=== PATIENT | male | born 1990 | race Two or more races ===

== ENCOUNTER 2020-04-13 11:38 | Outpatient (REF) | payer BC, SELFPAY ==
[2020-04-13 12:54] LABS: Alanine Aminotransferase 25 U/L (0-40); Albumin Level 4.2 g/dL (3.5-5.0); Alkaline Phosphatase 83 U/L (39-117); Anion Gap 11 (12-20); Aspartate Amino Transferase 18 U/L (5-37); Bilirubin Total 0.7 mg/dL (0.0-1.0); Blood Urea Nitrogen 16 mg/dL (9-16); Calcium 9.1 mg/dL (8.4-10.2); Carbon Dioxide 26 mmol/L (22-29); Chloride 104 mmol/L (96-108); Cholesterol 367 mg/dL; Estimated Glomerular Filt Rate > 60; Glucose Fasting 100 mg/dL (60-99); HDL Cholesterol 32 mg/dL; LDL Cholesterol Calculated 299 mg/dl; Potassium 4.4 mmol/l (3.3-5.1); Sodium 137 mmol/L (135-145); Total Protein 7.5 g/dL (6.5-8.0); Triglycerides 182 mg/dL
== END 2020-04-13 11:39 | disposition home or self-care (01) ==
LOC: HO.LAB 11:38
PROVIDERS: PCP Internal Medicine; Visit Provider Internal Medicine
DX: E78.5 Hyperlipidemia, unspecified (principal); R79.89 Other specified abnormal findings of blood chemistry
CPT/HCPCS: 80053; 80061

== ENCOUNTER → 2020-05-11 10:55 | Outpatient (BNVA) | payer BC, SELFPAY | PROVIDERS: PCP Internal Medicine; Visit Provider Surgery ==

== ENCOUNTER 2020-05-19 08:43 | Outpatient (REF) | payer BC, SELFPAY ==
--- NOTE | 2020-05-19 08:23 | MHC.SHP ---
Pre-Procedural Eval Section A The patient is an INPATIENT: No Changes since office visit: No Cold of Flu in the past 2 weeks, No New Medical Problems and No Changes in Medication The History & Physical has been completed within 30 days and I have reviewed it.: Yes Section B Chief Complaint: Pilar cyst Allergies: Allergies Allergy/AdvReac Type Severity Reaction Status Date / Time No Known Allergies Allergy Verified 04/13/20 11:21 Plan Diagnosis/Plan: Unchanged I have reviewed the history and physical and performed a pertinent physical examination on my patient. No changes have occurred unless specified.
[2020-05-19 08:33] VITALS: BP 164/91; PULSE 81; RESP 19; TEMP 36.4; O2SAT 98; BMI 43.0
--- NOTE | 2020-05-19 15:38 | PM.OP ---
Brief Operative Note Date of Service: 05/19/20 Pre-op diagnosis: Pilar cyst posterior scalp Post-op diagnosis: same Procedure: Excision of Pilar cyst posterior scalp Implants: Non Surgeon: Albert Villalobos MD Anesthesia: local Estimated blood loss (mL): 5 Pathology: other (Pilar cyst posterior scalp) Condition: stable Disposition: other (Home)
--- NOTE | 2020-05-20 15:39 | P.OP_ITS ---
Operative Note Operative Note Date of Service: 05/19/20 Narrative: Preoperative diagnosis: Pilar cyst posterior scalp Postoperative diagnosis same Procedure: Excision of Pilar cyst posterior scalp Surgeon: Albert Villalobos MD Anesthesia: Local Indications for procedure: This is a 30-year-old male patient presenting with a large lump in the posterior scalp consistent with a Pilar cyst measuring approximately 8 cm in diameter. Operative findings: Patient was found to have a Pilar cyst which was fluid- filled consistent with a previous hematoma into the cyst. Specimen: Pilar cyst posterior scalp Estimated blood loss: 5 mL Complications: None Procedure details: Patient was brought to the minor surgery suite and placed in a prone position. The site of surgery was confirmed by the patient and informed consent assured. The skin of the posterior scalp was prepped with Betadine and draped in a sterile fashion. Local anesthesia consisting of 1% lidocaine with epinephrine was then infiltrated over the cyst. Incision was then made in elliptical fashion over the cyst oriented longitudinally. Incision was carried down to the cyst wall. A small govea of fluid was noted at this time therefore a needle aspiration was performed and a large fluid collection of a brownish appearing fluid was aspirated. Approximately 9 mL of fluid was aspirated. The cyst wall was then sharply dissected from the surrounding subcutaneous tissue using a combination of scalpel dissection and Metzenbaum dissection. Hemostasis was assured using light pressure. Skin was then closed using interrupted 3 0 Prolene sutures. Sterile dressing was applied as was a pressure dressing. The patient tolerated the procedure well. He was discharged to home in stable condition.
== END 2020-05-19 08:44 | disposition home or self-care (01) ==
LOC: HO.MS 08:43
PROVIDERS: PCP Internal Medicine; Visit Provider Surgery
PROC: (CPT 11426; principal; 2020-05-19 08:50)
DX: L72.11 Pilar cyst (principal)
CPT/HCPCS: 11426; 88304

== ENCOUNTER → 2020-05-27 10:28 | Outpatient (BNVA) | payer BC, SELFPAY | PROVIDERS: PCP Internal Medicine; Visit Provider Surgery ==

== ENCOUNTER 2020-10-09 23:14 | Emergency (ER) | payer BC, SELFPAY ==
[2020-10-09 23:33] VITALS: BP 115/79; PULSE 103; RESP 16; TEMP 37.2; O2SAT 97; BMI 38.9
[2020-10-10] MEDS: Lidocaine 4 % Cream KIT 1 APPL TOPICAL (00:50)
--- NOTE | 2020-10-10 00:56 | ED.GENADULT ---
HPI - General Adult General Chief complaint: Skin/Abscess/Foreign Body Stated complaint: hemorrhoids for 2 weeks Time Seen by Provider: 10/10/20 00:16 Source: patient Mode of arrival: ambulatory Limitations: no limitations History of Present Illness HPI narrative: 30 y/o male with history of morbid obesity, HLD, and hemorrhoids presents to the ER with reports of painful hemorrhoids for the last 1 week. He states he has been using over the counter cream with no relief in his symptoms. He reports pain, burning and itching. He is constipated and has hard stools. He had no abdominal pain, N/V and no rectal bleeding. No rectal intercourse. MD complaint: hemorrhoid pain Onset (ago): week(s) (1) Location: buttocks Radiation: non-radiation Severity: severe and similar to prior episodes Quality: burning, stabbing and constant Pain Consistency: constant Relieving factors: none Exacerbating factors: none Associated symptoms: denies other symptoms Treatments prior to arrival: none Related Data Previous Rx's Medication Instructions Recorded hydrocortisone-pramoxine 1 appl MT QID #10 g 10/10/20 [Proctofoam HC] polyethylene glycol 3350 [Miralax] 17 g PO DAILY #119 g 10/10/20 Allergies Allergy/AdvReac Type Severity Reaction Status Date / Time No Known Allergies Allergy Verified 05/27/20 10:43 Review of Systems Review of Systems: Constitutional: No Fever, No Chills Cardiovascular: No Chest Pain, No SOB Respiratory: No Cough, No Sputum Gastrointestinal: No Nausea, No Vomiting, No Diarrhea, No abdominal Pain, No Hematochezia, No Melena, +constipation Musculoskeletal: No joint pain, No Myalgias Skin: + Skin Lesions, No rash Neuro: No Weakness, No Numbness Heme/Lymph: No Bruising, No Lymphadenopathy PMFSH Past Medical History Attestation statement: The following information was validated with the patient. Medical History Mass of skin of head Morbid obesity Pure hypercholesterolemia Skin lesion Surgical History History of surgery of head Family History Family History Mother No problems noted. Father No problems noted. Social History Social History Alcohol intake: never Advance Directives: No Advance Directives Information Provided: No Physical Exam Vital Signs: Vital Signs: Last Vital Signs Temp 99 F 10/09/20 23:33 Pulse 103 H 10/09/20 23:33 Resp 16 10/09/20 23:33 BP 115/79 10/09/20 23:33 Pulse Ox 97 10/09/20 23:33 Body Mass Index 38.9 Appearance: Alert. Oriented X3. No acute distress. HEENT: normal inspection CVS: Normal heart rate and rhythm. Pulses normal. Respiratory: No respiratory distress. Skin: Skin warm and dry. Normal skin color. Normal skin turgor. No rashes. Rectal: two very small external hemorrhoids at 3 and 9 o'clock, tender. normal rectal tone. no internal hemorrhoids palpable Extremities: atraumatic, no edema Neuro: Oriented X 3. No motor deficit. No sensory deficit. Course Course Course Narrative: 30 y/o male presenting with hemorrhoidal pain. no bleeding. +constipation which is likely precipitating factor. exam does not show any large hemorrhoids that need to be incised at this time. Will continue symptomatic management and start bowel regimen to treat constipation. referral to surgery discussed for ongoing, refractory hemorrhoids. topical lidocaine applied. Patient is stable for discharge home. Discharge Plan Discharge Clinical Impression: Hemorrhoids Qualifiers: Hemorrhoid type: unspecified Qualified Code(s): K64.9 - Unspecified hemorrhoids Patient Disposition: Home, Self-Care Instructions: Hemorrhoids (ED) Additional Instructions: Increase your fluid intake. Take Colace 100 mg two times per day to make your stools soft, found over the counter. Use the prescribed medication for your hemorrhoids. Follow up with general surgery if you symptoms persist. If you have worsening pain or develop significant bleeding come back to the ER for further evaluation. Prescriptions: New Proctofoam HC 1-1 % foam 1 appl MT QID Qty: 10 RF: 0 polyethylene glycol 3350 [Miralax] 17 gram/dose powder 17 g PO DAILY Qty: 119 RF: 0 Referrals: Daniel Little MD [Physician] - 1 week (hemorrhoids) Interventions: ED Discharge Assessment Last Done: 10/10/20 01:09 Discharge Date/Time: 10/10/20 01:10
== END 2020-10-10 01:10 | disposition home or self-care (01) ==
PROVIDERS: Emergency Provider Student in an Organized Health Care Education/Training Program; PCP Internal Medicine
DX: K64.9 Unspecified hemorrhoids (principal); K59.00 Constipation, unspecified; E66.01 Morbid (severe) obesity due to excess calories; Z68.38 Body mass index [BMI] 38.0-38.9, adult
CPT/HCPCS: 99283

== ENCOUNTER 2020-10-22 15:55 | Outpatient (REF) | payer BC, SELFPAY | END 2020-10-22 15:56 | disposition home or self-care (01) | LOC: HO.LNP 15:55 | PROVIDERS: Visit Provider Physician Assistant Medical | DX: Z20.822 Contact with and (suspected) exposure to COVID-19 (principal) | CPT/HCPCS: U0003; U0005 ==

== ENCOUNTER 2020-11-17 05:26 | Emergency (ER) | payer BC, SELFPAY ==
[2020-11-17 06:25] VITALS: BP 145/83; PULSE 88; RESP 16; TEMP 36.4; O2SAT 97; BMI 38.2
[2020-11-17 07:31] VITALS: BP 113/84; PULSE 75; RESP 14; O2SAT 97
--- NOTE | 2020-11-17 07:36 | ED.GENADULT ---
HPI - General Adult General Chief complaint: General Medical Stated complaint: hemorrhoids Time Seen by Provider: 11/17/20 07:35 Source: patient Mode of arrival: ambulatory Limitations: no limitations History of Present Illness HPI narrative: 30-year-old male came in for evaluation of rectal pain. Patient was evaluated in the emergency department 4 weeks ago for similar symptoms, patient is scheduled to see the surgeon next week, came in today for severe rectal pain, no bleeding, no abdominal pain, nausea, no vomiting. Related Data Previous Rx's Medication Instructions Recorded polyethylene glycol 3350 17 17 g PO DAILY #119 g 10/10/20 gram/dose oral powder (Miralax) atorvastatin 20 mg tablet 20 mg PO BEDTIME 90 Days #90 tab 10/20/20 hydrocortisone 2.5 % topical cream 1 appl WA BID-QID PRN 14 Days #30 g 10/20/20 with perineal applicator (Proctosol HC) hydrocortisone acetate 30 mg 30 mg WA BID PRN #12 ea 10/22/20 rectal suppository (Proctocort) ibuprofen 600 mg tablet 600 mg PO Q8H PRN #30 tab 11/17/20 Allergies Allergy/AdvReac Type Severity Reaction Status Date / Time No Known Allergies Allergy Verified 10/22/20 13:16 Review of Systems Review of Systems: All other systems are reviewed and are negative Constitutional: Reports as per HPI and Reports no additional constitutional complaints Eyes: Reports as per HPI and Reports no additional eye complaints Reports system reviewed and no additional complaints, except as documented Cardiovascular: Reports as per HPI and Reports no additional cardiovascular complaints Respiratory: Reports as per HPI and Reports no additional respiratory complaints Gastrointestinal: Reports as per HPI and Reports no additional gastrointestinal complaints Genitourinary: Reports no additional female genitourinary complaints Musculoskeletal: Reports no additional musculoskeletal complaints Skin/Breast: Reports system reviewed and no additional complaints, except as docu Psychiatric: Reports no additional psychiatric complaints Endocrine: Reports no additional endocrine complaints Hematologic/Lymphatic: Reports no additional hematologic/lymphatic complaints Allergic/Immunologic: Reports no additional allergic/immunologic complaints Reports system reviewed and no additional complaints, except as documented and Reports Abnormal speech present [facility] Past Medical History Medical History Hemorrhoids Mass of skin of head Morbid obesity Obese Pure hypercholesterolemia Skin lesion Surgical History History of surgery of head Family History Family History Mother No problems noted. Father No problems noted. Social History Social History Housing: Apartment Alcohol intake: never Patient Tobacco Use Status: Never used Tobacco e-Cigarette/Vaping Use: Never Used Second Hand Smoke Exposure: No Advance Directives: No Advance Directives Information Provided: No service: No Current occupational status: employed Current occupational exposures/hazards: No Physical Exam Vital Signs: Vital Signs: Last Vital Signs Temp 97.5 F 11/17/20 06:25 Pulse 75 11/17/20 07:31 Resp 14 11/17/20 07:31 BP 113/84 11/17/20 07:31 Pulse Ox 97 11/17/20 07:31 Body Mass Index 38.2 Vital signs have been reviewed as appeared to be correct. Blood pressure normal. Heart rate normal. Respiration rate normal. Temperature normal. Oxygen saturation normal. Appearance: Alert. Oriented X3. No acute distress. Head: Normal external exam. Normocephalic. Atraumatic. No Marrero signs noted. No raccoon eyes noted Eyes: PERRLA. EOMI. Conjunctiva and sclera normal. Eyelids normal. ENT: TM's Normal. Pharynx normal. Uvula midline. Moist mucous membranes. No trismus noted. No drooling noted. No muffled voice noted. Neck: Normal inspection. Neck supple. FROM. No adenopathy. Thyroid Normal. No meningeal signs. No neck mass noted. CVS: Normal heart rate and rhythm. Heart sound normal. No murmurs noted. Pulses normal throughout. Respiratory: No respiratory distress. Painless inspiration. Breath sounds normal. No wheezes/rales/rhonchi noted. Chest nontender. No accessory muscle usage noted or decreased air movement noted. Abdomen: Soft and nontender. Bowel sounds normal in all 4 quadrants. No distention noted. No organomegaly noted. No visible injury noted. Rectal exam: 2 x 1 cm external hemorrhoid at 06:00 o'clock of the anal verge, no internal hemorrhoids, no fluctuation or abscess. Back: No CVA tenderness. Full range of motion noted. Skin: Skin warm and dry. Normal skin color. Normal skin turgor. No rashes/lesions/lacerations noted. Extremities: No lower extremity edema. Extremities exhibit normal range of motion. Extremities nontender. Neuro: Oriented X 3. No motor deficit. No sensory deficit. Reflexes normal. Course Course Course Narrative: Assessment and plan. Uncomplicated hemorrhoid patient is awaiting to see the surgeon, will give 1 time oxycodone, patient was instructed to drink plenty of fluids and try to avoid constipation. Discharge Plan Discharge Clinical Impression: Hemorrhoids Qualifiers: Hemorrhoid type: unspecified Qualified Code(s): K64.9 - Unspecified hemorrhoids Patient Disposition: Home, Self-Care Instructions: Hemorrhoids (ED) Prescriptions: New ibuprofen 600 mg tablet 600 mg PO Q8H PRN (Reason: pain) Qty: 30 RF: 0 No Action polyethylene glycol 3350 [Miralax] 17 gram/dose powder 17 g PO DAILY Qty: 119 RF: 0 hydrocortisone [Proctosol HC] 2.5 % cream with perineal applicator 1 appl WA BID-QID PRN (Reason: hemorrhoids) 14 Days Qty: 30 RF: 1 atorvastatin 20 mg tablet 20 mg PO BEDTIME 90 Days Qty: 90 RF: 1 hydrocortisone acetate [Proctocort] 30 mg suppository 30 mg WA BID PRN (Reason: hemorrhoids) Qty: 12 RF: 0 Referrals: Daniel Little MD [Physician] - 2 days
[2020-11-17] MEDS: oxyCODONE HCl Immed Release 5 MG TABLET PO (08:12)
== END 2020-11-17 08:16 | disposition home or self-care (01) ==
PROVIDERS: Emergency Provider Emergency Medicine; PCP Internal Medicine
DX: K64.9 Unspecified hemorrhoids (principal); Z79.899 Other long term (current) drug therapy
CPT/HCPCS: 99283; 99284

== ENCOUNTER 2020-12-10 14:14 | Emergency (ER) | payer BC, SELFPAY ==
[2020-12-10 14:39] VITALS: BP 134/85; PULSE 70; RESP 16; TEMP 36.4; O2SAT 98; BMI 38.6
--- NOTE | 2020-12-10 16:15 | ED.GENADULT ---
HPI - General Adult General Chief complaint: General Medical Stated complaint: hemorrhoids bleeding, back and legs pain Source: patient Mode of arrival: ambulatory Limitations: no limitations History of Present Illness HPI narrative: 30-year-old male presents with rectal pain and bleeding from hemorrhoids. Has a past medical history of hemorrhoids and it has seen Dr. Little for surgical consult. Has a repeat visit with Dr. Little on the . Onset (ago): day(s) Radiation: non-radiation Severity: moderate Severity scale (1-10): 6 Pain Consistency: constant Associated symptoms: denies other symptoms Related Data Previous Rx's Medication Instructions Recorded polyethylene glycol 3350 17 17 g PO DAILY #119 g 10/10/20 gram/dose oral powder (Miralax) atorvastatin 20 mg tablet 20 mg PO BEDTIME 90 Days #90 tab 10/20/20 hydrocortisone 2.5 % topical cream 1 appl MD BID-QID PRN 14 Days #30 g 10/20/20 with perineal applicator (Proctosol HC) hydrocortisone acetate 30 mg 30 mg MD BID PRN #12 ea 10/22/20 rectal suppository (Proctocort) ibuprofen 600 mg tablet 600 mg PO Q8H PRN #30 tab 11/17/20 ibuprofen 600 mg tablet 600 mg PO TID PRN #20 tab 11/17/20 ibuprofen 600 mg tablet 600 mg PO TID PRN #30 tab 12/10/20 Allergies Allergy/AdvReac Type Severity Reaction Status Date / Time No Known Allergies Allergy Verified 11/17/20 10:47 Review of Systems Review of Systems: Constitutional: No Fever, No Chills ENT/Mouth: No Ear Pain, No Hoarseness, No sore throat Eyes: No Eye Pain, No Swelling, No Redness, No Foreign Body Cardiovascular: No Chest Pain, No SOB Respiratory: No Cough, No Dyspnea Gastrointestinal: Positive rectal bleedings, positive hemorrhoids, No Nausea, No Vomiting, No Diarrhea, No abdominal Pain Genitourinary: No Dysuria, No Hematuria Musculoskeletal: positive lower back pain, No Myalgias, No Joint Swelling Skin: No Skin lacerations, No rash Neuro: No Weakness, No Numbness, No Paresthesias, No Loss of Consciousness, No Dizziness, No Headache Psych: No Anxiety/Panic, No Depression Heme/Lymph: no easy bruising, no Lymphadenopathy Endocrine: No Polyuria, No Polydipsia Yes all other systems are reviewed and are negative [facility]LY [facility] Past Medical History Attestation statement: The following information was validated with the patient. Source: old records reviewed Medical History External thrombosed hemorrhoids Hemorrhoids Mass of skin of head Morbid obesity Obese Pure hypercholesterolemia Skin lesion Surgical History History of surgery of head Family History Family History Mother No problems noted. Father No problems noted. Social History Social History Housing: Apartment Alcohol intake: never Patient Tobacco Use Status: Never used Tobacco e-Cigarette/Vaping Use: Never Used Second Hand Smoke Exposure: No Use of substances other than those prescribed or required for medical reasons: No Advance Directives: No Advance Directives Information Provided: No service: No Current occupational status: employed Current occupational exposures/hazards: No Physical Exam Vital Signs: Vital Signs: Last Vital Signs Temp 97.6 F 12/10/20 14:39 Pulse 70 12/10/20 14:39 Resp 16 12/10/20 14:39 BP 134/85 12/10/20 14:39 Pulse Ox 98 12/10/20 14:39 Body Mass Index 38.6 Appearance: Alert. Oriented X3. No acute distress. Eyes: Pupils equal, round and reactive to light. ENT: Pharynx normal. Neck: Normal inspection. Neck supple. CVS: Normal heart rate and rhythm. Pulses normal. Respiratory: No respiratory distress. Breath sounds normal. Abdomen: Soft and nontender. Genitourinary: Thrombosed external hemorrhoid noted, normal rectal tone. Skin: Skin warm and dry. Normal skin color. Normal skin turgor. Extremities: No lower extremity edema. Neuro: No motor deficit. No sensory deficit. Course Course Course Narrative: Patient presents with rectal pain and bleeding from known hemorrhoids. States the pain is 10/10, and now radiates to his back. He does have an appointment with Dr. Little on the . Physical exam indicates thrombosed external hemorrhoids, with normal rectal tone. Will give dibucaine and hydrocortisone topical ointment. Patient was encouraged to keep the appointment with Dr. Little. H&H is within normal limits. Patient verbalized understanding of and agrees to plan of care discharge home. Medical Decision Making Differential Diagnosis Differential Diagnosis: Hemorrhoids Medical Records Medical records reviewed: Yes I reviewed the patient's medical records. Lab Data Lab results reviewed: Yes I reviewed the patient's lab results. Result diagrams: 12/10/20 16:42 12/10/20 16:42 Labs: Lab Results 12/10/20 12/10/20 Range/Units 16:42 16:42 WBC 8.5 (4.8-10.8) X10*3/uL RBC 5.31 (4.60-5.80) X10*6/uL Hgb 13.7 L (14.0-18.0) g/dl Hct 42.1 (42-52) % MCV 79.3 L (80-98) fL MCH 25.8 L (27.0-33.0) pg MCHC 32.5 (31.0-36.0) g/dl RDW 15.7 (11.0-16.0) % Plt Count 201 (160-400) X10*3/uL MPV 12.5 H (9.4-12.4) fL Immature Gran % (Auto) 0.2 (0.0-0.4) % Neut % (Auto) 71.1 (45-73) % Lymph % (Auto) 23.0 (20-40) % Valley % (Auto) 4.0 (2-11) % Eos % (Auto) 1.2 (0-4) % Baso % (Auto) 0.5 (0-2) % Lymph # (Auto) 2.0 (1.2-4.9) X10*3/uL Valley # (Auto) 0.3 (0.1-1.2) X10*3/uL Eos # (Auto) 0.1 (0.0-0.4) X10*3/uL Baso # (Auto) 0.0 (0.0-0.2) X10*3/uL Abs Immat Gran (auto) 0.02 (0.00-0.03) X10*3/uL Absolute Neuts (auto) 6.1 (2.0-8.3) X10*3/uL Absolute Nucleated RBC 0.000 (0.0-0.012) X10*3/uL Nucleated RBC % (auto) 0.0 (0.0-0.2) /100WBC Sodium 140 (135-145) mmol/L Potassium 4.1 (3.3-5.1) mmol/L Chloride 107 (96-108) mmol/L Carbon Dioxide 24 (22-29) mmol/L Anion Gap 13 (12-20) BUN 14 (9-16) mg/dL Creatinine 1.03 (0.5-1.4) mg/dL Estim Creat Clear Calc 147.0 Estimated GFR > 60 Random Glucose 109 (60-115) mg/dL Calcium 9.5 (8.4-10.2) mg/dL Discharge Plan Discharge Clinical Impression: External thrombosed hemorrhoids, Hemorrhoids Patient Disposition: Home, Self-Care Instructions: Hemorrhoids (ED), Rectal Bleeding (ED), Thrombosed Hemorrhoid (ED) Additional Instructions: Please continue to follow-up with Dr. Little. Keep your appointment on the . Use the hydrocortisone cream twice a day. Use Dibucaine ointment 4 times a day. Use MiraLax and Colace to help soften stools. Thank you for choosing this emergency department for evaluation. Please follow-up with primary care physician as needed. Return to the emergency department for any new, concerning, or worsening symptoms. Prescriptions: New ibuprofen 600 mg tablet 600 mg PO TID PRN (Reason: pain) Qty: 30 RF: 0 No Action polyethylene glycol 3350 [Miralax] 17 gram/dose powder 17 g PO DAILY Qty: 119 RF: 0 ibuprofen 600 mg tablet 600 mg PO Q8H PRN (Reason: pain) Qty: 30 RF: 0 hydrocortisone [Proctosol HC] 2.5 % cream with perineal applicator 1 appl MD BID-QID PRN (Reason: hemorrhoids) 14 Days Qty: 30 RF: 1 atorvastatin 20 mg tablet 20 mg PO BEDTIME 90 Days Qty: 90 RF: 1 hydrocortisone acetate [Proctocort] 30 mg suppository 30 mg MD BID PRN (Reason: hemorrhoids) Qty: 12 RF: 0 ibuprofen 600 mg tablet 600 mg PO TID PRN (Reason: pain) Qty: 20 RF: 0 Referrals: Daniel Little MD [Physician] - 2 days (Hemorrhoids) Interventions: ED Discharge Assessment Last Done: 12/10/20 17:14
[2020-12-10 16:46] LABS: MANUAL DIFF FLAG NO
[2020-12-10 16:48] LABS: Basophils Percent Auto 0.5 % (0-2); Eosinophils Absolute Auto 0.1 X10*3/uL (0.0-0.4); Eosinophils Percent Auto 1.2 % (0-4); Hematocrit 42.1 % (42-52); Hemoglobin 13.7 g/dl (14.0-18.0); Imm Gran Abs Auto 0.02 X10*3/uL (0.00-0.03); Imm Gran Pct Auto 0.2 % (0.0-0.4); Mean Corpuscular HGB Conc 32.5 g/dl (31.0-36.0); Mean Corpuscular Hemoglobin 25.8 pg (27.0-33.0); Mean Corpuscular Volume 79.3 fL (80-98); Mean Platelet Volume 12.5 fL (9.4-12.4); Monocytes Absolute Auto 0.3 X10*3/uL (0.1-1.2); Neutrophils Absolute Auto 6.1 X10*3/uL (2.0-8.3); Neutrophils Percent Auto 71.1 % (45-73); Platelet Count 201 X10*3/uL (160-400); Red Blood Count 5.31 X10*6/uL (4.60-5.80); Red Cell Distribution Width 15.7 % (11.0-16.0); White Blood Count 8.5 X10*3/uL (4.8-10.8)
[2020-12-10] MEDS: Hydrocortisone 2.5 % Rectal Cr 30 GM TUBE 1 APPL PR (17:09)
[2020-12-10 17:18] LABS: Anion Gap 13 (12-20); Blood Urea Nitrogen 14 mg/dL (9-16); Calcium 9.5 mg/dL (8.4-10.2); Carbon Dioxide 24 mmol/L (22-29); Chloride 107 mmol/L (96-108); Estimated Glomerular Filt Rate > 60; Glucose Random 109 mg/dL (60-115); Potassium 4.1 mmol/L (3.3-5.1); Sodium 140 mmol/L (135-145)
== END 2020-12-10 17:27 | disposition home or self-care (01) ==
PROVIDERS: Nurse Practitioner Family; Emergency Provider Internal Medicine; PCP Internal Medicine
DX: K64.5 Perianal venous thrombosis (principal); E66.9 Obesity, unspecified; E78.00 Pure hypercholesterolemia, unspecified; Z79.02 Long term (current) use of antithrombotics/antiplatelets; Z79.899 Other long term (current) drug therapy
CPT/HCPCS: 36415; 80048; 85025; 99283; 99284

== ENCOUNTER → 2020-12-14 14:37 | Outpatient (BNVA) | payer BC, SELFPAY | PROVIDERS: PCP Internal Medicine; Visit Provider Surgery ==

== ENCOUNTER 2020-12-23 10:12 | Day surgery (SDC) | payer BC, SELFPAY ==
--- NOTE | 2020-12-22 09:28 | HO.ANESPROP2 ---
Documented by User: Ailyn Mahoney NP 12/22/20 09:29 HPI - Anesthesia Eval Consult details Narrative: 30yo M for EUA, Hemorrhoidectomy PMFSH Active Problems Active Problems: All Active Problems (Updated 12/14/20 @ 15:10 by Daniel Little MD) Anal fissure (Acute) External thrombosed hemorrhoids (Acute) Obese (Acute) Hemorrhoids (Acute) Pilar cyst (Acute) Mass of skin of head (Acute) Pure hypercholesterolemia (Acute) Skin lesion (Acute) Morbid obesity (Acute) Past Medical History Medical History Anal fissure External thrombosed hemorrhoids Hemorrhoids Mass of skin of head Morbid obesity Obese Pure hypercholesterolemia Skin lesion Family History Family History Mother No problems noted. Father No problems noted. Surgical History Surgical History History of surgery of head Social History Social History Housing: Apartment Alcohol intake: never Patient Tobacco Use Status: Never used Tobacco e-Cigarette/Vaping Use: Never Used Second Hand Smoke Exposure: No Use of substances other than those prescribed or required for medical reasons: No Are you DNR?: No Advance Directives: No Advance Directives Information Provided: Yes service: No Current occupational status: employed Current occupational exposures/hazards: No Meds Allergies Allergy/AdvReac Type Severity Reaction Status Date / Time No Known Allergies Allergy Verified 11/17/20 10:47 Exam Exam Date and Time: December 22, [id number] Pertinent Lab Results Pertinent Lab Results: Laboratory Tests 12/10/20 12/10/20 16:42 16:42 WBC 8.5 Hgb 13.7 L Hct 42.1 Plt Count 201 Sodium 140 Potassium 4.1 Chloride 107 Carbon Dioxide 24 BUN 14 Creatinine 1.03 Assessment and Plan Assessment Anesthesia Assessment: Chart Reviewed Documented by User: Jo Ann Wolf MD 12/23/20 11:41 PMFSH Past Medical History Medical History Anal fissure External thrombosed hemorrhoids Hemorrhoids Mass of skin of head Morbid obesity Obese Pure hypercholesterolemia Skin lesion Functional capacity: independent ambulation Family History Family History Mother No problems noted. Father No problems noted. Family history of problems with anesthesia: No Surgical History Surgical History History of surgery of head History of Problems with Anesthesia: No Social History Social History Housing: Apartment Alcohol intake: never Patient Tobacco Use Status: Never used Tobacco e-Cigarette/Vaping Use: Never Used Second Hand Smoke Exposure: No Use of substances other than those prescribed or required for medical reasons: No Are you DNR?: No Advance Directives: No Advance Directives Information Provided: Yes service: No Current occupational status: employed Current occupational exposures/hazards: No Meds Allergies Allergy/AdvReac Type Severity Reaction Status Date / Time No Known Allergies Allergy Verified 11/17/20 10:47 Exam Airway Mallampati Class: III TM Dist: >3cm Neck ROM: Full Heart: RRR Lungs: CTA Assessment and Plan Final Anesthetic Review Family History of Problems with Anesthesia: No History of Problems with Anesthesia: No
[2020-12-23] VITALS (12 sets, daily range): BP systolic 92–139; BP diastolic 47–81; PULSE 62–108; RESP 14–20; TEMP 36.1–36.4; O2SAT 93–100; BMI 35.6
[2020-12-23] MEDS: Lactated Ringers 1,000 ML 100 ML IVCONT (10:50)
--- NOTE | 2020-12-23 12:12 | MHC.SHP ---
Pre-Procedural Eval Section A Date of Service: 12/23/20 Section B Chief Complaint: Anal Fissure Allergies: Allergies Allergy/AdvReac Type Severity Reaction Status Date / Time No Known Allergies Allergy Verified 11/17/20 10:47 Plan I have reviewed the history and physical and performed a pertinent physical examination on my patient. No changes have occurred unless specified.
--- NOTE | 2020-12-23 13:02 | P.OP_ITS ---
Operative Note Operative Note Date of Service: 12/23/20 Narrative: Preop diagnosis: Anal fissure Postop diagnosis: Anal fissure Procedure: Exam under anesthesia, left lateral internal sphincterotomy Surgeon: Daniel Little MD [employer]: Jane Arora. The patient is a 30-year-old male who was seen in the office because of severe anal pain with bowel movements. Overall exam and clinical findings were suggestive of an anal fissure. He wanted to proceed with lateral internal sphincterotomy for relief of his symptoms. He understood the risks including but not limited to bleeding infections, as well as benefits and alternatives. He was brought to the operating room. He was placed in prone katlyn-knife position under general anesthesia via endotracheal tube. The buttocks were retracted with wide tape laterally. The perianal area area was prepped and draped in usual sterile fashion. A surgical time-out was done. The patient received Cefotan 2 g IV preoperatively. Examination of the anal orifice revealed external hemorrhoids, moderate sized to bulky, on the left and right side. There was no thrombosed hemorrhoid or any inflammation. I infiltrated the perianal area with lidocaine 1%. I inserted Cal Gonzáles retractor and examined the anal canal circumferentially. There was note of a posterior midline fissure at the anal derm with note of visible sphincter. The rest of the examination of the anal canal did not reveal any other pathology except for hemorrhoids on both the left and right side, mix of internal external I palpated for the intersphincteric groove on the left side of the anal verge. I made an incision on the skin overlying the intersphincteric groove using a blade 15. I then used a fine tip hemostat to gently dissect through the skin all the way into the sphincter fibers. I was able to directly visualize the intersphincteric plane. I isolated the internal sphincter fibers. I divided the fibers of the internal sphincter using electrocautery all the way down to the level of the dentate line. He did have significant hemorrhoidal tissue so I had to carefully stay way from this during the dissection After sphincterotomy, proceeded to then close the small incision with a running chromic 3-0 stitch I then re-examined the posterior midline. I cauterized the edges of the posterior midline fissure. I also cauterized the base of the wound. Once hemostasis was confirmed, I proceeded to then infiltrated the perianal area with Marcaine 0.5% for postop analgesia. The procedure was then completed The patient tolerated procedure well. There were no complication noted. Initial fine counts of sponges and instruments were correct. Estimated blood loss about 4 cc The patient was then extubated without difficulty and transferred to the recovery room with stable vital signs.
--- NOTE | 2020-12-23 13:08 | PM.OP ---
Brief Operative Note Date of Service: 12/23/20 Pre-op diagnosis: Anal fissure Post-op diagnosis: same Procedure: Exam under anesthesia, lateral internal sphincterotomy Surgeon: Daniel Little MD Anesthesia: GETA Was an Dirt Shoveler used for this Procedure?: No Estimated blood loss (mL): 4 Pathology: none sent Condition: stable Disposition: PACU
[2020-12-23] MEDS: oxyCODONE HCl Immed Release 5 MG TABLET PO (13:27)
[2020-12-23] MEDS: fentaNYL citrate/PF 100 MCG/2 ML VIAL 25 MCG IVPUSH ×2 (13:29→13:55)
--- NOTE | 2020-12-23 15:30 | PC.NURSE ---
patient remains nauseous Dr. Buchanan notified. HR 56 RR 17 sao2 97% ra.
[2020-12-23] MEDS: Ondansetron ODT 4 MG TAB.RAPDIS TRANSLINGU (15:38)
== END 2020-12-23 15:55 ==
LOC: HO.SSS 10:13
PROVIDERS: PCP Internal Medicine; Visit Provider Surgery
PROC: (CPT 46200; principal; 2020-12-23 11:40)
DX: K60.2 Anal fissure, unspecified (principal); K64.4 Residual hemorrhoidal skin tags; E78.00 Pure hypercholesterolemia, unspecified; E66.01 Morbid (severe) obesity due to excess calories; Z68.37 Body mass index [BMI] 37.0-37.9, adult; Z79.1 Long term (current) use of non-steroidal anti-inflammatories (NSAID); Z79.899 Other long term (current) drug therapy
CPT/HCPCS: 46200; J1100; J2405; J3010

== ENCOUNTER → 2021-01-05 15:23 | Outpatient (BNVA) | payer BC, SELFPAY | PROVIDERS: PCP Internal Medicine; Visit Provider Surgery ==

== ENCOUNTER → 2021-01-19 11:46 | Outpatient (BNVA) | payer BC, SELFPAY | PROVIDERS: PCP Internal Medicine; Visit Provider Surgery ==

== ENCOUNTER 2021-05-10 13:38 | Outpatient (REF) | payer BC, SELFPAY ==
[2021-05-10 14:48] LABS: Alanine Aminotransferase 24 U/L (0-40); Albumin Level 4.2 g/dL (3.5-5.0); Alkaline Phosphatase 95 U/L (39-117); Anion Gap 12 (12-20); Aspartate Amino Transferase 24 U/L (5-37); Bilirubin Total 0.2 mg/dL (0.0-1.0); Blood Urea Nitrogen 17 mg/dL (9-16); Calcium 9.7 mg/dL (8.4-10.2); Carbon Dioxide 23 mmol/L (22-29); Chloride 107 mmol/L (96-108); Cholesterol 368 mg/dL; Estimated Glomerular Filt Rate > 60; Glucose Fasting 109 mg/dL (60-99); HDL Cholesterol 30 mg/dL; LDL Cholesterol Calculated 288 mg/dl; Sodium 138 mmol/L (135-145); Total Protein 7.7 g/dL (6.5-8.0); Triglycerides 250 mg/dL
[2021-05-10 15:29] LABS: Syphilis Screen Nonreactive (Nonreactive)
[2021-05-11 05:05] LABS: HIV AB/AG Nonreactive (Nonreactive); HIV Num 1 0.05 S/CO (0.00-0.99)
== END 2021-05-10 13:39 | disposition home or self-care (01) ==
LOC: HO.LAB 13:38
PROVIDERS: PCP Internal Medicine; Visit Provider Internal Medicine
DX: Z11.4 Encounter for screening for human immunodeficiency virus [HIV] (principal); E78.00 Pure hypercholesterolemia, unspecified; E78.5 Hyperlipidemia, unspecified
CPT/HCPCS: 36415; 80053; 80061; 86780; 87389

== ENCOUNTER 2022-03-23 05:15 | Emergency (ER) | payer BC, SELFPAY ==
--- NOTE | ~2022-03-23 | US_ITS ---
EXAMINATION: US ABDOMEN LIMITED CLINICAL INFORMATION: Right upper quadrant pain. COMPARISON: CT scan of the abdomen and pelvis dated 06/15/2011. TECHNIQUE: Real-time imaging of the right upper quadrant abdominal viscera. FINDINGS: PANCREAS: Visualized portions unremarkable. LIVER: Unremarkable. GALLBLADDER: Minimally distended containing multiple gallstones without significant mural thickening or pericholecystic fluid. COMMON BILE DUCT: Normal in caliber measuring 0.3 cm in diameter. RIGHT KIDNEY: 11.6 cm. Unremarkable. FREE FLUID: None. US/US abdomen limited IMPRESSION: Cholelithiasis without evidence for acute cholecystitis.
[2022-03-23 05:25] VITALS: BP 130/78; PULSE 85; RESP 20; TEMP 36.4; O2SAT 99; BMI 35.2
[2022-03-23 05:36] LABS: MANUAL DIFF FLAG NO
[2022-03-23 05:37] LABS: Basophils Percent Auto 0.3 % (0-2); Eosinophils Absolute Auto 0.1 X10*3/uL (0.0-0.4); Eosinophils Percent Auto 1.3 % (0-4); Hematocrit 44.4 % (42.0-52.0); Hemoglobin 14.7 g/dl (14.0-18.0); Imm Gran Abs Auto 0.02 X10*3/uL (0.00-0.03); Imm Gran Pct Auto 0.2 % (0.0-0.4); Lymphocytes Absolute Auto 2.5 X10*3/uL (1.2-4.9); Lymphocytes Percent Auto 27.4 % (20-40); Mean Corpuscular HGB Conc 33.1 g/dl (31.0-36.0); Mean Corpuscular Hemoglobin 26.5 pg (27.0-33.0); Mean Platelet Volume 11.9 fL (9.4-12.4); Monocytes Absolute Auto 0.8 X10*3/uL (0.1-1.2); Monocytes Percent Auto 8.5 % (2-11); Neutrophils Absolute Auto 5.6 x10*3/uL (2.0-8.3); Neutrophils Percent Auto 62.3 % (45-73); Platelet Count 196 X10*3/uL (160-400); Red Blood Count 5.55 X10*6/uL (4.60-5.80); Red Cell Distribution Width 15.5 % (11.0-16.0)
[2022-03-23 05:54] LABS: Anion Gap 13 (12-20); Blood Urea Nitrogen 15 mg/dL (9-16); Calcium 9.5 mg/dL (8.4-10.2); Carbon Dioxide 25 mmol/L (22-29); Chloride 100 mmol/L (96-108); Creatinine Clr Calc Pharmacy 149.1; Estimated Glomerular Filt Rate > 60; Glucose Random 96 mg/dL (60-115); Potassium 3.6 mmol/L (3.3-5.1); Sodium 134 mmol/L (135-145)
[2022-03-23 07:05] VITALS: BP 120/76; PULSE 64; RESP 16; O2SAT 98
[2022-03-23 07:06] LABS: Alanine Aminotransferase 155 U/L (0-40); Albumin Level 4.3 g/dL (3.5-5.0); Alkaline Phosphatase 102 U/L (39-117); Aspartate Amino Transferase 203 U/L (5-37); Bilirubin Direct 0.4 mg/dL (0.0-0.5); Bilirubin Total 0.9 mg/dL (0.0-1.0); Lipase 32 U/L (8-78); Total Protein 7.4 g/dL (6.5-8.0)
--- NOTE | 2022-03-23 07:08 | ED_ITS ---
HPI - Abdominal Pain General Chief Complaint: Abdominal Pain Stated Complaint: Abd pain Time Seen by Provider: 03/23/22 06:36 Source: patient Mode of arrival: ambulatory History of Present Illness HPI narrative: 31-year-old male without significant past medical history presents with right upper quadrant/epigastric abdominal discomfort that is crampy in nature and extends over the diaphragmatic distribution in into posterior back on the right side. This is not been associated with any fever, chills, nausea, vomiting but patient states he had a similar ?attack? last month that resolved on its own. He otherwise denies any GI or symptoms. Related Data Previous Rx's Medication Instructions Recorded atorvastatin 40 mg tablet 40 mg PO BEDTIME 90 days #90 tabs 09/19/21 loratadine 10 mg tablet 10 mg PO DAILY PRN allergy 09/19/21 symptoms 90 days #90 tabs Allergies Allergy/AdvReac Type Severity Reaction Status Date / Time No Known Allergies Allergy Verified 03/23/22 05:28 Review of Systems Review of Systems Pertinent positives and negatives as stated in HPI 10 point review of systems otherwise negative. [facility] Past Medical History Source: nursing notes reviewed Medical History Allergic rhinitis Anal fissure External thrombosed hemorrhoids Hemorrhoids Mass of skin of head Mixed hyperlipidemia Morbid obesity Obese Screen for STD (sexually transmitted disease) Skin lesion Surgical History History of surgery of head Family History Family History Mother No problems noted. Father No problems noted. Social History Social History Housing: Apartment Alcohol intake: never Patient Tobacco Use Status: Never used Tobacco Smoked in Last 30 Days: No e-Cigarette/Vaping Use: Never Used Second Hand Smoke Exposure: No Use of substances other than those prescribed or required for medical reasons: No Advance Directives: No Advance Directives Information Provided: Yes service: No Current occupational status: employed Current occupational exposures/hazards: No Cognitive needs: No Hearing needs: No Vision needs: No Physical Exam ED Vital Signs: Vital Signs - 24 hr 03/23/22 05:25 03/23/22 07:05 Temperature 97.5 F Pulse Rate 85 64 Respiratory Rate 20 16 Blood Pressure 130/78 120/76 Pulse Oximetry 99 98 Oxygen Delivery Method Room Air Room Air BMI result Body Mass Index 35.2 VITAL SIGNS: Reviewed. GENERAL: Well developed, well nourished, in no acute distress. HEAD: Normocephalic/atraumatic EYES: PERRLA, EOMI EARS: Ext canals without abnormality OROPHARYNX: no oral lesions noted, posterior pharynx clear LUNGS: Normal breath sounds. No adventitious sounds or accessory muscle use. SpO2<99> CARDIOVASCULAR: Regular rate and rhythm without noted murmurs ABDOMEN: Soft, right upper quadrant pain, Marion's positive,, non-distended with bowel sounds MUSCULOSKELETAL: No tenderness, deformities, or effusions noted on gross inspection. EXTREMITIES: No cyanosis, clubbing or edema. SKIN: Inspection of the skin reveals no rashes NEUROLOGIC: Alert and oriented x 4. Strength and sensation to light touch were grossly intact x 4. Course Course Course Narrative: 0714: 31-year-old male with history and clinical presentation most consistent with suspected cholecystitis and less likely ulcer/SBO/renal colic. Review of all investigations consistent with cholelithiasis, patient will get a referral to follow-up with surgery for elective treatment. He is recommended to follow a low-fat diet and use combination analgesics. MDM - Abdominal Pain Lab Data Result diagrams: 03/23/22 05:32 03/23/22 05:32 Labs: Lab Results 03/23/22 03/23/22 Range/Units 05:32 05:32 WBC 9.0 (4.8-10.8) X10*3/uL RBC 5.55 (4.60-5.80) X10*6/uL Hgb 14.7 (14.0-18.0) g/dl Hct 44.4 (42.0-52.0) % MCV 80.0 (80.0-98.0) fL MCH 26.5 L (27.0-33.0) pg MCHC 33.1 (31.0-36.0) g/dl RDW 15.5 (11.0-16.0) % Plt Count 196 (160-400) X10*3/uL MPV 11.9 (9.4-12.4) fL Immature Gran % (Auto) 0.2 (0.0-0.4) % Neut % (Auto) 62.3 (45-73) % Lymph % (Auto) 27.4 (20-40) % Garza % (Auto) 8.5 (2-11) % Eos % (Auto) 1.3 (0-4) % Baso % (Auto) 0.3 (0-2) % Lymph # (Auto) 2.5 (1.2-4.9) X10*3/uL Garza # (Auto) 0.8 (0.1-1.2) X10*3/uL Eos # (Auto) 0.1 (0.0-0.4) X10*3/uL Baso # (Auto) 0.0 (0.0-0.2) X10*3/uL Abs Immat Gran (auto) 0.02 (0.00-0.03) X10*3/uL Absolute Neuts (auto) 5.6 (2.0-8.3) x10*3/uL Absolute Nucleated RBC 0.000 (0.0-0.012) X10*3/uL Nucleated RBC % (auto) 0.0 (0.0-0.2) /100WBC Sodium 134 L (135-145) mmol/L Potassium 3.6 (3.3-5.1) mmol/L Chloride 100 (96-108) mmol/L Carbon Dioxide 25 (22-29) mmol/L Anion Gap 13 (12-20) BUN 15 (9-16) mg/dL Creatinine 0.96 (0.5-1.4) mg/dL Estim Creat Clear Calc 149.1 Estimated GFR > 60 Random Glucose 96 (60-115) mg/dL Calcium 9.5 (8.4-10.2) mg/dL Total Bilirubin 0.9 (0.0-1.0) mg/dL Direct Bilirubin 0.4 (0.0-0.5) mg/dL AST 203 H (5-37) U/L ALT 155 H (0-40) U/L Alkaline Phosphatase 102 (39-117) U/L Total Protein 7.4 (6.5-8.0) g/dL Albumin 4.3 (3.5-5.0) g/dL Lipase 32 (8-78) U/L Discharge Plan Discharge Clinical Impression: Cholelithiasis Patient Disposition: Home, Self-Care Instructions: Gallstones (ED), Low Fat Diet (ED) Additional Instructions: 1. Recommend uprp-vkl-[id number] Tylenol/ibuprofen as needed for pain control. You should follow a low-fat diet. 2. Follow-up with the referral that you have been provided to see General surgery for elective removal of your gallbladder. [facility]. 3. Follow-up with primary care provider next 1-2 days for re-evaluation further outpatient management. Return to the ER for worsening symptoms. Prescriptions: No Action atorvastatin 40 mg tablet 40 mg PO BEDTIME 90 Days Qty: 90 1RF loratadine 10 mg tablet 10 mg PO DAILY PRN (Reason: allergy symptoms) 90 Days Qty: 90 1RF Referrals: Ly Cid MD [Primary Care Provider] - Albert Villalobos MD [Physician] - (CHolelithiasis, intermittent pain)
== END 2022-03-23 10:44 | disposition home or self-care (01) ==
PROVIDERS: Emergency Provider Student in an Organized Health Care Education/Training Program; PCP Internal Medicine
DX: K80.20 Calculus of gallbladder without cholecystitis without obstruction (principal); R10.11 Right upper quadrant pain; R10.13 Epigastric pain; Z79.899 Other long term (current) drug therapy
CPT/HCPCS: 36415; 76705; 80048; 80076; 83690; 85025; 99284

== ENCOUNTER 2022-04-09 03:11 | Inpatient (IN) | payer BC, SELFPAY ==
[2022-04-09] VITALS (24 sets, daily range): BP systolic 107–153; BP diastolic 59–96; PULSE 53–98; RESP 14–65; TEMP 36.2–37; O2SAT 96–100; BMI 34.9
--- NOTE | ~2022-04-09 | US_ITS ---
EXAMINATION: US ABDOMEN LIMITED CLINICAL INFORMATION: Gallbladder, pain. COMPARISON: Abdominal ultrasound 03/23/2022. TECHNIQUE: Real-time imaging of the right upper quadrant abdominal viscera. FINDINGS: Targeted sonographic evaluation of the gallbladder. Cholelithiasis without significant wall thickening nor pericholecystic free fluid. Patient reports tenderness in the epigastric region at the moment of the examination. The common bile duct normal in diameter measuring 0.4 cm. US/US abdomen limited IMPRESSION: Cholelithiasis without sonographic evidence of acute cholecystitis.
[2022-04-09 04:07] LABS: Basophils Absolute Auto 0.1 X10*3/uL (0.0-0.2); Basophils Percent Auto 0.6 % (0-2); Eosinophils Absolute Auto 0.2 X10*3/uL (0.0-0.4); Eosinophils Percent Auto 1.8 % (0-4); Hemoglobin 15.1 g/dl (14.0-18.0); Imm Gran Abs Auto 0.03 X10*3/uL (0.00-0.03); Imm Gran Pct Auto 0.3 % (0.0-0.4); Lymphocytes Absolute Auto 3.4 X10*3/uL (1.2-4.9); Lymphocytes Percent Auto 36.6 % (20-40); MANUAL DIFF FLAG NO; Mean Corpuscular HGB Conc 32.8 g/dl (31.0-36.0); Mean Corpuscular Hemoglobin 26.4 pg (27.0-33.0); Mean Corpuscular Volume 80.4 fL (80.0-98.0); Mean Platelet Volume 11.6 fL (9.4-12.4); Monocytes Absolute Auto 0.8 X10*3/uL (0.1-1.2); Monocytes Percent Auto 8.2 % (2-11); Neutrophils Absolute Auto 4.9 x10*3/uL (2.0-8.3); Neutrophils Percent Auto 52.5 % (45-73); Platelet Count 181 X10*3/uL (160-400); Red Blood Count 5.72 X10*6/uL (4.60-5.80); Red Cell Distribution Width 15.2 % (11.0-16.0); White Blood Count 9.3 X10*3/uL (4.8-10.8)
[2022-04-09 04:09] LABS: Appearance Urine Clear; Color Urine Yellow; Glucose Urine UA Negative (Negative); Leukocyte Esterase Urine Negative (Negative); Nitrite Urine Negative (Negative); PH 5.5 (5.0-9.0); Specific Gravity - Urine >= 1.030 (1.005-1.025); Urine Blood Negative (Negative); Urine Ketones Negative (Negative); Urine Protein Trace mg/dL (Neg-Trace)
--- NOTE | 2022-04-09 04:19 | PC.NURSE ---
Addendum entered by Lexus Locke 04/09/22 04:29: Pt has N/V, pt IV was inserted 20G. Original Note: Pt's V/S are stable, pt is a/o x 5, pt is independent and able to ambulate. Pt reports he is waiting for cholesectomy and he is in pain 10/10 in the ULQ.
[2022-04-09 04:25] LABS: Alanine Aminotransferase 26 U/L (0-40); Albumin Level 4.4 g/dL (3.5-5.0); Alkaline Phosphatase 89 U/L (39-117); Anion Gap 14 (12-20); Aspartate Amino Transferase 15 U/L (5-37); Bilirubin Total 0.3 mg/dL (0.0-1.0); Blood Urea Nitrogen 18 mg/dL (9-16); Calcium 9.6 mg/dL (8.4-10.2); Carbon Dioxide 22 mmol/L (22-29); Chloride 107 mmol/L (96-108); Creatinine Clr Calc Pharmacy 141.2; Estimated Glomerular Filt Rate > 60; Glucose Random 116 mg/dL (60-115); Lipase 33 U/L (8-78); Potassium 3.9 mmol/L (3.3-5.1); Sodium 139 mmol/L (135-145); Total Protein 7.4 g/dL (6.5-8.0)
[2022-04-09] MEDS: Ketorolac Tromethamine 30 MG/ML VIAL 15 MG IVPUSH (04:34)
[2022-04-09] MEDS: 0.9 % Sodium Chloride 1,000 ML 999 ML IV (04:37)
[2022-04-09] MEDS: ondansetron HCL 4 MG/2 ML VIAL IVPUSH ×2 (05:22→12:19)
--- NOTE | 2022-04-09 05:49 | ED.ABDPAIN ---
HPI - Abdominal Pain General Chief Complaint: Abdominal Pain Stated Complaint: stomach pain Time Seen by Provider: 04/09/22 03:48 Source: patient Mode of arrival: ambulatory History of Present Illness HPI narrative: 31-year-old male with history of cholelithiasis presents with known cholelithiasis and states that approximately 23:00 last night he developed crampy right upper quadrant pain that radiates across his upper abdomen and diaphragmatic distribution and has been associated with nausea but no vomiting. Patient also reports chills and otherwise denies fever, shortness of breath, chest pain/palpitations. Patient states he is scheduled for surgery on 04/18. Related Data Previous Rx's Medication Instructions Recorded atorvastatin 40 mg tablet 40 mg PO BEDTIME 90 days #90 tabs 09/19/21 loratadine 10 mg tablet 10 mg PO DAILY PRN allergy 09/19/21 symptoms 90 days #90 tabs dicyclomine 10 mg capsule 10 mg PO TID PRN abdominal 03/29/22 discomfort #30 caps omeprazole 10 mg capsule,delayed 10 mg PO DAILY #30 caps 03/29/22 release Allergies Allergy/AdvReac Type Severity Reaction Status Date / Time No Known Allergies Allergy Verified 04/09/22 03:19 Review of Systems Review of Systems Pertinent positives and negatives as stated in HPI 10 point review of systems is otherwise negative. [facility] Past Medical History Source: nursing notes reviewed Medical History Allergic rhinitis Anal fissure External thrombosed hemorrhoids Hemorrhoids Mass of skin of head Mixed hyperlipidemia Morbid obesity Obese Screen for STD (sexually transmitted disease) Skin lesion Surgical History History of hemorrhoidectomy History of surgery of head Family History Family History Mother No problems noted. Father No problems noted. Social History Social History Housing: Apartment Alcohol intake: never Patient Tobacco Use Status: Never used Tobacco Smoked in Last 30 Days: No e-Cigarette/Vaping Use: Never Used Second Hand Smoke Exposure: No Use of substances other than those prescribed or required for medical reasons: No Advance Directives: No Advance Directives Information Provided: No service: No Current occupational status: employed Current occupational exposures/hazards: No Cognitive needs: No Hearing needs: No Vision needs: No Physical Exam ED Vital Signs: Vital Signs - 24 hr 04/09/22 03:19 04/09/22 03:44 04/09/22 06:14 Temperature 97.9 F 98.5 F 98.5 F Pulse Rate 98 84 57 Respiratory Rate 17 22 H 16 Blood Pressure 135/96 H 150/91 H 107/59 L Pulse Oximetry 98 98 97 Oxygen Delivery Method Room Air Room Air Room Air 04/09/22 06:00 04/09/22 07:07 Temperature 97.9 F Pulse Rate 56 58 Respiratory Rate 15 Blood Pressure 107/59 L 116/63 Pulse Oximetry 96 Oxygen Delivery Method Room Air BMI result Body Mass Index 34.9 VITAL SIGNS: Reviewed. GENERAL: Well developed, well nourished, in no acute distress. HEAD: Normocephalic/atraumatic EYES: PERRLA, EOMI EARS: Ext canals without abnormality OROPHARYNX: no oral lesions noted, posterior pharynx clear LUNGS: Normal breath sounds. No adventitious sounds or accessory muscle use. SpO2<98> CARDIOVASCULAR: Regular rate and rhythm without noted murmurs ABDOMEN: Soft, right upper quadrant pain,, non-distended with bowel sounds. MUSCULOSKELETAL: No tenderness, deformities, or effusions noted on gross inspection. EXTREMITIES: No cyanosis, clubbing or edema. SKIN: Inspection of the skin reveals no rashes NEUROLOGIC: Alert and oriented x 4. Strength and sensation to light touch were grossly intact x 4. Course Course Course Narrative: 31-year-old male with history and clinical presentation most consistent with cholecystitis and on review of all investigations no evidence to suggest pancreatitis, gastritis but suspect a biliary colic. Review of all investigations negative for acute findings, however clinical exam and patient complaint suggestive of a biliary colic this potentially not being picked up even by ultrasound. I did discuss the case with Dr. Little who will be in to see the patient. Signed out to Dr Navarro Reevaluation(s) Reevaluation #1: I discussed the case with General surgery via tiger text and he will see the patient in the ER. Time: 06:22 Medical Decision Making Lab Data Result Diagrams: 04/09/22 04:01 04/09/22 04:01 Labs: Lab Results 04/09/22 04/09/2222 Range/Units 04:00 04:01 04:01 WBC 9.3 (4.8-10.8) X10*3/uL RBC 5.72 (4.60-5.80) X10*6/uL Hgb 15.1 (14.0-18.0) g/dl Hct 46.0 (42.0-52.0) % MCV 80.4 (80.0-98.0) fL MCH 26.4 L (27.0-33.0) pg MCHC 32.8 (31.0-36.0) g/dl RDW 15.2 (11.0-16.0) % Plt Count 181 (160-400) X10*3/uL MPV 11.6 (9.4-12.4) fL Immature Gran % (Auto) 0.3 (0.0-0.4) % Neut % (Auto) 52.5 (45-73) % Lymph % (Auto) 36.6 (20-40) % [place] % (Auto) 8.2 (2-11) % Eos % (Auto) 1.8 (0-4) % Baso % (Auto) 0.6 (0-2) % Lymph # (Auto) 3.4 (1.2-4.9) X10*3/uL [place] # (Auto) 0.8 (0.1-1.2) X10*3/uL Eos # (Auto) 0.2 (0.0-0.4) X10*3/uL Baso # (Auto) 0.1 (0.0-0.2) X10*3/uL Abs Immat Gran (auto) 0.03 (0.00-0.03) X10*3/uL Absolute Neuts (auto) 4.9 (2.0-8.3) x10*3/uL Absolute Nucleated RBC 0.000 (0.0-0.012) X10*3/uL Nucleated RBC % (auto) 0.0 (0.0-0.2) /100WBC Sodium 139 (135-145) mmol/L Potassium 3.9 (3.3-5.1) mmol/L Chloride 107 (96-108) mmol/L Carbon Dioxide 22 (22-29) mmol/L Anion Gap 14 (12-20) BUN 18 H (9-16) mg/dL Creatinine 1.01 (0.5-1.4) mg/dL Estim Creat Clear Calc 141.2 Estimated GFR > 60 Random Glucose 116 H (60-115) mg/dL Calcium 9.6 (8.4-10.2) mg/dL Total Bilirubin 0.3 (0.0-1.0) mg/dL AST 15 (5-37) U/L ALT 26 (0-40) U/L Alkaline Phosphatase 89 (39-117) U/L Total Protein 7.4 (6.5-8.0) g/dL Albumin 4.4 (3.5-5.0) g/dL Lipase 33 (8-78) U/L Urine Color Yellow Urine Appearance Clear Urine pH 5.5 (5.0-9.0) Ur Specific [place] >= 1.030 H (1.005-1.025) Urine Protein Trace (Neg-Trace) mg/dL Urine Glucose (UA) Negative (Negative) mg/dL Urine Ketones Negative (Negative) mg/dL Urine Blood Negative (Negative) Urine Nitrite Negative (Negative) Ur Leukocyte Esterase Negative (Negative) Medications Administered Discontinued Medications Generic Name Dose Route Start Last Admin Trade Name Dannq PRN Reason Stop Dose Admin Fentanyl 25 mcg 04/09/22 05:44 04/09/22 06:19 Fentanyl Citrate/Pf 100 Mcg/2 Ml Vial IVPUSH 04/09/22 05:45 25 mcg ONCE ONE Administration Protocol Sodium Chloride 1,000 mls @ 999 mls/hr 04/09/22 04:30 04/09/22 05:38 Ns IV 04/09/22 05:30 Infused .Q1H1M KEREN Infusion Ketorolac Tromethamine 15 mg 04/09/22 04:24 04/09/22 04:34 Ketorolac Tromethamine 30 Mg/Ml Vial IVPUSH 04/09/22 04:25 15 mg ONCE ONE Administration Ondansetron HCl 4 mg 04/09/22 04:39 04/09/22 05:22 Ondansetron Hcl 4 Mg/2 Ml Vial IVPUSH 04/09/22 04:40 4 mg ONCE ONE Administration Discharge Plan Discharge Clinical Impression: Pain, abdominal, RUQ, Cholelithiasis Patient Disposition: Still a Patient Prescriptions: No Action atorvastatin 40 mg tablet 40 mg PO BEDTIME 90 Days Qty: 90 1RF loratadine 10 mg tablet 10 mg PO DAILY PRN (Reason: allergy symptoms) 90 Days Qty: 90 1RF dicyclomine 10 mg capsule 10 mg PO TID PRN (Reason: abdominal discomfort) Qty: 30 0RF omeprazole 10 mg capsule,delayed release(DR/EC) 10 mg PO DAILY Qty: 30 0RF
[2022-04-09] MEDS: fentaNYL citrate/PF 100 MCG/2 ML VIAL 25 MCG IVPUSH (06:19)
--- NOTE | 2022-04-09 06:24 | PC.NURSE ---
Pt's BP is stable, pt was medicated as order, pt appears no apparent distress.
--- NOTE | 2022-04-09 09:04 | P.HPGS_ITS ---
History of Present Illness History of Present Illness Date of Service: 04/13/22 Chief complaint: stomach pain Narrative: Ced Jay is a 31 year old male here because of right upper quadrant pain. He has known gallstones. He was actually seen by Dr. Villalobos 2 weeks ago because of some symptomatic gallstones and was scheduled for laparoscopic cholecystectomy later this month. He started to have another severe pain again yesterday. He describes is on the right upper quadrant radiating to the side of the back. He had a little bit of nausea without vomiting. He denies any obvious aggravating factor. He says he has still has significant pain and wants to proceed with ch olecystectomy today. He otherwise no other significant complaints. He denies diarrhea or constipation. Review of Systems Constitutional: Constitutional: Denies chills and Denies fever(s) Cardiovascular: Cardiovascular: Denies chest pain, Denies dyspnea and Denies dyspnea on exertion Respiratory: Respiratory: Denies cough, Denies dyspnea and Denies dyspnea on exertion Gastrointestinal: Gastrointestinal: Denies hematochezia and Denies change in bowel habits Genitourinary: Genitourinary: Denies hematuria and Denies difficulty urinating Musculoskeletal: Musculoskeletal: Denies back pain and Denies limited range of motion Neurologic: Denies focal weakness and Denies convulsions Psychiatric: Psychiatric: Denies depression and Denies mood swings PMFSH Past Medical History Medical History Allergic rhinitis Anal fissure External thrombosed hemorrhoids Hemorrhoids Mass of skin of head Mixed hyperlipidemia Morbid obesity Obese Screen for STD (sexually transmitted disease) Skin lesion Family History Family History Mother No problems noted. Father No problems noted. Surgical History Surgical History History of hemorrhoidectomy History of surgery of head Social History Social History Housing: Apartment Alcohol intake: never Patient Tobacco Use Status: Never used Tobacco e-Cigarette/Vaping Use: Never Used Second Hand Smoke Exposure: No service: No Current occupational status: employed Current occupational exposures/hazards: No Cognitive needs: No Hearing needs: No Vision needs: No Meds Allergies Allergy/AdvReac Type Severity Reaction Status Date / Time No Known Allergies Allergy Verified 04/09/22 03:19 Physical Exam Vital Signs: Vital Signs: Last Vital Signs Temp 97.9 F 04/09/22 07:07 Pulse 58 04/09/22 07:07 Resp 15 04/09/22 07:07 BP 116/63 04/09/22 07:07 Pulse Ox 96 04/09/22 07:07 O2 Del Method 04/09/22 07:07 BMI result Body Mass Index 34.9 Const: General: comfortable and no acute distress Orientation/consciousness: patient oriented x3 Neck: Neck: Yes no lymphadenopathy Resp: Auscultation: clear to auscultation bilaterally Cardio: Rhythm: regular rhythm GI: Other: tender in the right upper quadrant Palpation (GI): Soft to palpation, nontender and no guarding Neuro: General: patient oriented x3 Results Results Labs: Short CBC 04/09/22 Range/Units 04:01 WBC 9.3 (4.8-10.8) X10*3/uL Hgb 15.1 (14.0-18.0) g/dl Hct 46.0 (42.0-52.0) % Plt Count 181 (160-400) X10*3/uL BMP 04/09/22 04:01 Sodium 139 Potassium 3.9 Chloride 107 Carbon Dioxide 22 BUN 18 H Creatinine 1.01 Calcium 9.6 Liver Function 04/09/22 Range/Units 04:01 Total Bilirubin 0.3 (0.0-1.0) mg/dL AST 15 (5-37) U/L ALT 26 (0-40) U/L Alkaline Phosphatase 89 (39-117) U/L Albumin 4.4 (3.5-5.0) g/dL Urine 04/09/22 Range/Units 04:00 Urine Color Yellow Urine Appearance Clear Urine pH 5.5 (5.0-9.0) Ur Specific [place] >= 1.030 H (1.005-1.025) Urine Protein Trace (Neg-Trace) mg/dL Urine Glucose (UA) Negative (Negative) mg/dL Additional studies: Laboratory Results WBC 9.3 X10*3/uL (4.8-10.8) 04/09/22 04:01 RBC 5.72 X10*6/uL (4.60-5.80) 04/09/22 04:01 Hgb 15.1 g/dl (14.0-18.0) 04/09/22 04:01 Hct 46.0 % (42.0-52.0) 04/09/22 04:01 MCV 80.4 fL (80.0-98.0) 04/09/22 04:01 MCH 26.4 pg (27.0-33.0) L 04/09/22 04:01 MCHC 32.8 g/dl (31.0-36.0) 04/09/22 04:01 RDW 15.2 % (11.0-16.0) 04/09/22 04:01 Plt Count 181 X10*3/uL (160-400) 04/09/22 04:01 MPV 11.6 fL (9.4-12.4) 04/09/22 04:01 Immature Gran % (Auto) 0.3 % (0.0-0.4) 04/09/22 04:01 Neut % (Auto) 52.5 % (45-73) 04/09/22 04:01 Lymph % (Auto) 36.6 % (20-40) 04/09/22 04:01 [place] % (Auto) 8.2 % (2-11) 04/09/22 04:01 Eos % (Auto) 1.8 % (0-4) 04/09/22 04:01 Baso % (Auto) 0.6 % (0-2) 04/09/22 04:01 Lymph # (Auto) 3.4 X10*3/uL (1.2-4.9) 04/09/22 04:01 [place] # (Auto) 0.8 X10*3/uL (0.1-1.2) 04/09/22 04:01 Eos # (Auto) 0.2 X10*3/uL (0.0-0.4) 04/09/22 04:01 Baso # (Auto) 0.1 X10*3/uL (0.0-0.2) 04/09/22 04:01 Abs Immat Gran (auto) 0.03 X10*3/uL (0.00-0.03) 04/09/22 04:01 Absolute Neuts (auto) 4.9 x10*3/uL (2.0-8.3) 04/09/22 04:01 Absolute Nucleated RBC 0.000 X10*3/uL (0.0-0.012) 04/09/22 04:01 Nucleated RBC % (auto) 0.0 /100WBC (0.0-0.2) 04/09/22 04:01 Sodium 139 mmol/L (135-145) 04/09/22 04:01 Potassium 3.9 mmol/L (3.3-5.1) 04/09/22 04:01 Chloride 107 mmol/L (96-108) 04/09/22 04:01 Carbon Dioxide 22 mmol/L (22-29) 04/09/22 04:01 Anion Gap 14 (12-20) 04/09/22 04:01 BUN 18 mg/dL (9-16) H 04/09/22 04:01 Creatinine 1.01 mg/dL (0.5-1.4) 04/09/22 04:01 Estim Creat Clear Calc 141.2 04/09/22 04:01 Estimated GFR > 60 04/09/22 04:01 Random Glucose 116 mg/dL (60-115) H 04/09/22 04:01 Calcium 9.6 mg/dL (8.4-10.2) 04/09/22 04:01 Total Bilirubin 0.3 mg/dL (0.0-1.0) 04/09/22 04:01 AST 15 U/L (5-37) 04/09/22 04:01 ALT 26 U/L (0-40) 04/09/22 04:01 Alkaline Phosphatase 89 U/L (39-117) 04/09/22 04:01 Total Protein 7.4 g/dL (6.5-8.0) 04/09/22 04:01 Albumin 4.4 g/dL (3.5-5.0) 04/09/22 04:01 Lipase 33 U/L (8-78) 04/09/22 04:01 Urine Color Yellow 04/09/22 04:00 Urine Appearance Clear 04/09/22 04:00 Urine pH 5.5 (5.0-9.0) 04/09/22 04:00 Ur Specific [place] >= 1.030 (1.005-1.025) H 04/09/22 04:00 Urine Protein Trace mg/dL (Neg-Trace) 04/09/22 04:00 Urine Glucose (UA) Negative mg/dL (Negative) 04/09/22 04:00 Urine Ketones Negative mg/dL (Negative) 04/09/22 04:00 Urine Blood Negative (Negative) 04/09/22 04:00 Urine Nitrite Negative (Negative) 04/09/22 04:00 Ur Leukocyte Esterase Negative (Negative) 04/09/22 04:00 Impressions Abdomen Ultrasound 04/09/22 05:05 IMPRESSION: Cholelithiasis without sonographic evidence of acute cholecystitis. Assessment and Plan (1) Cholelithiasis: Status: Acute He continues to have pain on right upper quadrant despite ultrasound findings showing no evidence of acute cholecystitis. This is his 2nd visit to the ER for the same problem. he says that he would her not to wait for next week for his elective cholecystectomy. I reviewed with him the technique of laparoscopic cholecystectomy and possible open. I discussed the risks including but not limited to bleeding, infections, injury to bowel, liver and the bile ducts, retained stones, bile leak, as well as the benefits and alternatives. He understands and wants to proceed. His LFTs are normal. (2) Pain, abdominal, RUQ: Status: Acute Time Spent With Patient Time: Total time managing care of this patient today ____ minutes. Quality Stroke Does the patient have a stroke diagnosis?: No VTE Prior VTE?: No VTE Risk Level:: Medical - low VTE Device Contraindication: N/A - Device Ordered VTE Drug Contraindication: Treatment Not Indicated Procedures Date of Service Date of Service: 04/09/22
[2022-04-09 09:45] LABS: COVID-19 Test Negative (Negative); IDNOW Serial# 9DB6401D
--- NOTE | 2022-04-09 11:22 | P.OP_ITS ---
Operative Note Operative Note Date of Service: 04/09/22 Narrative: Preop diagnosis: Gallstones with persistent right upper quadrant pain Postop diagnosis: The same Procedure: Laparoscopic cholecystectomy Surgeon: Daniel Little MD golf player assistant: TJ Troo The patient is a 31-year-old male with known gallstones with periodic right upper quadrant pain, who was actually scheduled to have cholecystectomy with Dr. Villalobos, on April 18, came to the emergency room last night because of right upper quadrant pain. He says that this had been persistent since yesterday. This is 2nd ER visit past 3 weeks. He says that he would not be able to wait for cholecystectomy next week because of her severe persistent pain. He wanted to proceed with this his current admission. He understood the technique of the procedure and was aware of the risks, benefits, and alternatives. He was brought to the operating room placed supine under general anesthesia via endotracheal tube. The abdomen was prepped and draped in the usual sterile fashion. A surgical time-out was done. The patient received Cefotan 2 g IV preoperatively I made a short supraumbilical incision using a blade 15. This was carried down through the full-thickness of the skin subcutaneous fat down to the fascia. The fascia was incised. The peritoneum was entered. Through this incision a Cris port was introduced. Pneumoperitoneum was introduced to a pressure of 15 minutes hg. From here on the rest of procedure was done under vision with the laparoscope. With laparoscopic visualization using the 10 mm scope, I proceeded to insert a 5/12 mm port in the epigastric area below the subcostal margin. Two 5 mm hurts introduced a small incisions below the subcostal margin along the anterior axillary in the midclavicular line. Graspers were placed through these working ports. The patient was placed in head-up and [id number] position. Gallbladder was seen. There was note of a lot of filmy adhesions on the anterior wall. Was able to apply a grasper at the fundus and this was used to retract the gallbladder cephalad. I proceeded to applied other grasper towards the pouch of the gallbladder to retract this laterally. At this point therefore the gallbladder was being retracted in a cephalad and lateral fashion. I carefully dissected all these filmy adhesions off of the rest of the anterior wall. In so was able see what appeared to be the cystic duct. I carefully dissected this with the [place] dissector until was able to confirm its confluence with the neck of the gallbladder. By doing so was able to achieve a critical view of the hepatocystic triangle. A site of the cystic artery, there did not seem to be any other structures in this area. Once the cystic duct was carefully identified, applied clips with 2 clips being applied distally. The cystic duct was transected between clips with Endo scissors. I applied clips on the cystic artery with 2 clips being applied distally the cystic artery was transected clips with Endo scissors as well With fraction of the gallbladder away from the liver bed, proceeded to gently dissect through the hilum using the electrocautery spatula reach the interface of the gallbladder wall and the liver bed. I incised the peritoneum and define a plane of dissection between the gallbladder wall and the liver bed using combination of blunt dissection with the tip of the spatula and electrocautery. I the gallbladder off of the rest of the liver along this well-defined plane. We proceeded with this dissection all the way to the fundus until the entire gallbladder was completely . The gallbladder was retrieved through an endobag through the umbilical incision. I reinserted all ports and re-insufflated. I examined the area of dissection. This was hemostatic. The clips were intact I observed all 4 quadrants and there was no other pathology nor any evidence of bowel injury or bile leak. I then proceeded to desufflate the port sites. I removed all ports under vision with the laparoscope. I removed the umbilical port last. The fascia of the umbilical incision was closed with [id number] Dexon 0 stitch. Skin closure was achieved on all incisions using Dexon 4-0 subcuticular running sutures. Steri-Strips and dressings were applied. All incisions were infiltrated with Marcaine 0.5% for postop analgesia and the procedure was completed The patient tolerated procedure well. There were no immediate complications. Initial and final counts of sponges and instruments were correct. Estimated blood loss was less than 10 cc The patient was extubated without difficulty and transferred to the recovery room with stable vital signs.
[2022-04-09] MEDS: oxyCODONE HCl Immed Release 5 MG TABLET 10 MG PO ×2 (12:20→17:41)
[2022-04-09] MEDS: fentaNYL citrate/PF 100 MCG/2 ML VIAL 50 MCG IVPUSH ×2 (12:21→12:51)
--- NOTE | 2022-04-09 15:17 | PM.EVENT ---
Event Note Date of Service: 04/09/22 Event Note: underwent lap elisa this AM says his pain control is adequate tolerating regular diet abd soft looks well says he is ok to go home later today dc instructions explained to pt office ffup in 2-3 weeks Time Spent With Patient Time: Total time managing care of this patient today ____ minutes.
--- NOTE | 2022-04-09 15:41 | MHC.CM.PN ---
DP: PT MEDICALLY CLEARED FOR DISCHARGE HOME, NO SERVICES. FAMILY WILL TRANSPORT
[2022-04-09] MEDS: 0.9 % Sodium Chloride Flush 3 ML SYRINGE IVFLUSH (15:47)
[2022-04-09] MEDS: Morphine Sulfate 4 MG/ML CARTRIDGE IVPUSH (15:47)
--- NOTE | 2022-04-09 18:29 | PC.NURSE ---
@ aprox 1710 ambulated patient 50 ft. Pt appeared mildly uncomfortable complaining of flatus and belching. Pt did well will ambulation overall. Just prior to discharge pt reported that he was still nauseaus and proceded to vomit most of his dinner. Dr Little notified, and received orders to hold discharge
[2022-04-10] MEDS: Morphine Sulfate 4 MG/ML CARTRIDGE IVPUSH (00:17)
[2022-04-10] MEDS: 0.9 % Sodium Chloride Flush 3 ML SYRINGE IVFLUSH (00:30)
[2022-04-10 03:59] VITALS: BP 113/58; PULSE 54; RESP 18; TEMP 36.2; O2SAT 99
[2022-04-10 08:00] VITALS: BP 125/64; PULSE 84; RESP 17; TEMP 36.3; O2SAT 99
--- NOTE | 2022-04-10 09:18 | MHC.CM.PN ---
CM MET WITH PT, FEELING BETTER AND READY TO GO HOME. LIVES WITH BROTHER IN AN APARTMENT. NO SERVICES NO DME, PT IS EMPLOYED. NO HCP BUT WILLING TO DO ONE WHILE HERE. +COVID VAX X 2. PCP DR. HOGAN AT [facility]. DP: PT MEDICALLY CLEARED FOR DC HOME NO SERVICES, BROTHER WILL TRANSPORT.
--- NOTE | 2022-04-10 09:42 | P.PNGS_ITS ---
Subjective Subjective Date of Service: 04/10/22 <Shaila Toro PA-C - Last Filed: 04/10/22 09:46> 04/11/22 <Daniel Little MD - Last Filed: 04/11/22 12:12> Interval history: Feels better this morning. Tolerated breakfast without nausea or vomiting. Pain at the incision sites but comfortable with analgesics. OOB and ambulating without difficulty. Wants to go home. <Shaila Toro PA-C - Last Filed: 04/10/22 09:46> Physical Exam Vital Signs: Vital Signs: Last Vital Signs Temp 97.4 F 04/10/22 08:00 Pulse 84 04/10/22 08:00 Resp 17 04/10/22 08:00 BP 125/64 04/10/22 08:00 Pulse Ox 99 04/10/22 08:00 O2 Del Method 04/10/22 08:00 O2 Flow Rate 2 04/09/22 14:13 BMI result Body Mass Index 34.9 <Shaila Toro PA-C - Last Filed: 04/10/22 09:46> Const: General: comfortable, no acute distress and alert <Shaila Toro PA-C - Last Filed: 04/10/22 09:46> Orientation/consciousness: patient oriented x3 <DIEGO Davis Last Filed: 04/10/22 09:46> Resp: Effort & Inspection: normal respiratory effort <Shaila Toro PA-C - Last Filed: 04/10/22 09:46> Cardio: Rate: regular rate <DIEGO Davis Last Filed: 04/10/22 09:46> GI: Inspection: No distended, Yes incision (dressings c/d/i) and Yes other (round) <DIEGO Davis Last Filed: 04/10/22 09:46> Palpation (GI): Soft to palpation, Tenderness to palpation present (GI) (mild, incisional (epigastric and umbilical)), no guarding and not rigid <DIEGO Davis Last Filed: 04/10/22 09:46> Percussion: Yes normal to percussion <Shaila Toro PA-C - Last Filed: 04/10/22 09:46> Skin: General skin exam: no rashes or lesions noted <Shaila Toro PA-C - Last Filed: 04/10/22 09:46> Neuro: General: patient oriented x3 <Shaila Toro PA-C - Last Filed: 04/10/22 09:46> Extrem: General: Yes no clubbing, cyanosis or edema <Shaila Toro PA-C - Last Filed: 04/10/22 09:46> Objective Data Active Medications Atorvastatin Calcium (Atorvastatin Calcium 40 Mg Tablet) 40 mg PO DAILY [facility] Fentanyl (Fentanyl Citrate/Pf 100 Mcg/2 Ml Vial) 50 mcg IVPUSH Q5M PRN; Protocol PRN Reason: Pain, Severe (Pain Scale 7-10) Last Admin: 04/09/22 12:51 Dose: 50 mcg Documented By: NAMITA Morphine Sulfate (Morphine Sulfate 4 Mg/Ml Cartridge) 4 mg IVPUSH Q4H PRN; Protocol PRN Reason: Pain, Severe (Pain Scale 7-10) Last Admin: 04/10/22 00:17 Dose: 4 mg Documented By: CHASITY Oxycodone HCl (Oxycodone Hcl Immed Release 5 Mg Tablet) 5 mg PO Q4H PRN PRN Reason: Pain, Moderate (Pain Scale 4-6 Oxycodone HCl (Oxycodone Hcl Immed Release 5 Mg Tablet) 10 mg PO Q4H PRN PRN Reason: Pain, Severe (Pain Scale 7-10) Last Admin: 04/09/22 17:41 Dose: 10 mg Documented By: RYAN Sodium Chloride (0.9 % Sodium Chloride Flush 3 Ml Syringe) 3 ml IVFLUSH QSHIFT [facility] Last Admin: 04/10/22 00:30 Dose: 3 ml Documented By: CHASITY <Shaila Toro PA-C - Last Filed: 04/10/22 09:46> Labs CBC & Chem 7: : 04/09/22 04:01 04/09/22 04:01 <Shaila Toro PA-C - Last Filed: 04/10/22 09:46> Labs: Laboratory Results - last 24 hr 04/09/22 09:12 COVID-19 ([facility]) Negative COVID-19 Clin Com See Note <Shaila Toro PA-C - Last Filed: 04/10/22 09:46> Procedures Date of Service Date of Service: 04/10/22 <Shaila Toro PA-C - Last Filed: 04/10/22 09:46> Progress Note: A&P Assessment and plan (1) S/P laparoscopic cholecystectomy: Status: Acute <Shaila Toro PA-C - Last Filed: 04/10/22 09:46> Assessment and Plan: Exam is remained benign Said he threw up last night so discharge was canceled He feels ready to go home today Looks well DC instructions given again Seen and examined independently <Daniel Little MD - Last Filed: 04/11/22 12:12> (2) Acute cholecystitis due to biliary calculus: Status: Acute <Shaila Toro PA-C - Last Filed: 04/10/22 09:46> Assessment and Plan: 31 year old male admitted with acute cholecystitis now POD #1 s/p lap elisa. Doing well post op. Abd benign with appropriate post op tenderness, dressings c/d/i. Stable for discharge to home today. Patient comfortable with plan. F/u in office in [address] Little. Educated no heavy lifting. <Shaila Toro PA-C - Last Filed: 04/10/22 09:46> Time Spent With Patient Time: Total time managing care of this patient today 25 minutes. <Shaila Toro PA-C - Last Filed: 04/10/22 09:46> Quality Stroke Does the patient have a stroke diagnosis?: No <Shaila Toro PA-C - Last Filed: 04/10/22 09:46> VTE Prior VTE?: No <Shaila Toro PA-C - Last Filed: 04/10/22 09:46> VTE Risk Level:: Medical - low <Shaila Toro PA-C - Last Filed: 04/10/22 09:46> VTE Device Contraindication: N/A - Device Ordered <Shaila Toro PA-C - Last Filed: 04/10/22 09:46> VTE Drug Contraindication: Treatment Not Indicated <Shaila Toro PA-C - Last Filed: 04/10/22 09:46>
[2022-04-10] MEDS: oxyCODONE HCl Immed Release 5 MG TABLET PO (10:21)
[2022-04-10] MEDS: Atorvastatin Calcium 40 MG TABLET PO (10:22)
--- NOTE | 2022-04-10 13:16 | PM.DS ---
DS: Providers Provider Date of Service: 04/10/22 Date of admission: 04/09/22 14:17 Date of discharge: 04/10/22 Primary care physician: Glenn Physician Attending physician on admission: Daniel Little Attending physician on discharge: Daniel Little DS: Diagnosis Discharge Diagnosis (1) S/P laparoscopic cholecystectomy: Status: Acute (2) Acute cholecystitis due to biliary calculus: Status: Acute DS: Summary Hospital Course Hospital Course: BRIEF HPI: Ced Jay is a 31 year old male here because of right upper quadrant pain. He has known gallstones. He was actually seen by Dr. Villalobos 2 weeks ago because of some symptomatic gallstones and was scheduled for laparoscopic cholecystectomy later this month. He started to have another severe pain again yesterday. He describes is on the right upper quadrant radiating to the side of the back. He had a little bit of nausea without vomiting. He denies any obvious aggravating factor. He says he has still has significant pain and wants to proceed with cholecystectomy today instead of waiting. He otherwise no other significant complaints. He denies diarrhea or constipation. HOSPITAL COURSE: He continued to have pain on right upper quadrant despite ultrasound findings showing no evidence of acute cholecystitis. Due to the persistence of pain and multiple ED visits for RUQ pain, the option of proceeding with cholecystectomy while he was here was discussed. Technique of laparoscopic cholecystectomy and possible open was discussed. He wanted to proceed. He was added onto the OR schedule for that day. On 04/09/22, a laparoscopic cholecystectomy was performed by Dr. Little without complication. The patient tolerated the procedure well. He was initially feeling well and wanted to go home but then vomited. He therefore stayed overnight. On POD #1, he felt much improved. He had mild pain controlled on PO analgesics. He was tolerating his diet and had breakfast without any nausea or vomiting. He was OOB without difficulty. His abdomen had appropriate post op tenderness with intact and clean dressings. He felt ready for discharge. He was discharged to home on 04/10/22 in stable condition. He is to follow up with Dr. Little in office in 2 weeks. Status at Discharge Functional status at discharge: independent ambulation Overall status at discharge: patient is progressing back to baseline Time Spent with Patient Time attestation: Total time managing care of this patient today ____ minutes. Discharge coordination time: Less than 30 minutes Quality: Safe Use of Opioids Does Pt have an Active Cancer Diagnosis on the Problem List?: No Quality: Stroke Does the patient have a stroke diagnosis?: No Physical Exam Vital Signs: Vital Signs: Last Vital Signs Temp 97.4 F 04/10/22 08:00 Pulse 84 04/10/22 08:00 Resp 17 04/10/22 08:00 BP 125/64 04/10/22 08:00 Pulse Ox 99 04/10/22 08:00 O2 Del Method 04/10/22 08:00 O2 Flow Rate 2 04/09/22 14:13 BMI result Body Mass Index 34.9 Const: General: comfortable, no acute distress and alert Orientation/consciousness: patient oriented x3 Resp: Effort & Inspection: normal respiratory effort GI: Inspection: No distended and Yes incision (dressings c/d/i) Palpation (GI): Soft to palpation, Tenderness to palpation present (GI) (mild, incisional ), no guarding and not rigid Skin: General skin exam: no rashes or lesions noted Neuro: General: patient oriented x3 DS: Data Data Completed and Pending Completed studies during hospitalization [Text1]: Pending at discharge 04/09/22 11:14 Surgical [PTH] Routine Discharge Plan Discharge Anticipated Discharge Date/Time: 04/09/22 19:19 Patient Disposition: Home, Self-Care Discharge Diagnosis: gallstones with pain Referrals: Daniel Little MD [Physician] - 2 Weeks Physician,Glenn J [Primary Care Provider] - 1 Week Discharge Medications: New oxycodone 5 mg tablet 5 mg PO Q4H PRN (Reason: pain (scale score 7-10)) Qty: 24 0RF Rx Instructions: Partial Fill upon patient request. ibuprofen 600 mg tablet 600 mg PO Q8H PRN (Reason: pain) Qty: 30 0RF Continued atorvastatin 40 mg tablet 40 mg PO BEDTIME 90 Days Qty: 90 1RF loratadine 10 mg tablet 10 mg PO DAILY PRN (Reason: allergy symptoms) 90 Days Qty: 90 1RF dicyclomine 10 mg capsule 10 mg PO TID PRN (Reason: abdominal discomfort) Qty: 30 0RF omeprazole 10 mg capsule,delayed release(DR/EC) 10 mg PO DAILY Qty: 30 0RF Discharge Orders: Discharge Order (Routine); Ordered 12/19/22 Ordered By: Daniel Little Diet: Low fat, low cholesterol Activity on Discharge: No heavy lifting Stand Alone Forms: Work/School Release Activity Restrictions/Additional Instructions: If the incision area is tender, you may apply an ice pack for short intervals (No more than 20 minutes on, followed by at least 20 minutes off). Do not apply heat. Do not use creams, lotions, or topical antibiotics unless instructed to do so by your surgeon. These can cause infection or allergic reaction. Ok to shower 24 hours after your surgery. Remove bandaids in 2 days and replace. You have steri strips (small white cloth strips) covering your incision- these will fall off ~1 week. Follow up in office with Dr. Little in 2 weeks. ([phone]) No heavy lifting (>10-20lbs) or strenuous activity! Call Your Doctor If: -Your temperature exceeds 101.5? F -You experience excessive pain or swelling -You have an unexpected reaction to medication -You have excessive bleeding -You experience continued vomiting/nausea -Your incision begins to separate -Your incision shows signs of infection such as increased redness, swelling, excessive pain, drainage (light blood or clear fluid is normal) or heat Care Plan Goals: pain mgt [facility] Health Concerns: obesity pain control Plan of Treatment: oral pain meds no lifting Assessment: doing well Discharge Date/Time: 04/10/22 11:27
--- NOTE | 2022-04-10 15:11 | HO.POSTANES ---
Post Anesthesia Evaluation Post Anesthesia Evaluation Vital Signs: Vital Signs Temp Pulse Resp BP Pulse Ox O2 Del Method 04/10/22 08:00 97.4 F 84 17 125/64 99 Room Air 04/10/22 03:59 97.1 F 54 18 113/58 L 99 Room Air Anesthesia: General Endotracheal-GETA Mental Status: Awake Pain Control: Satisfactory Nausea/Vomiting: None Hydration: Adequate Anesthesia-Related Issues: No Anes. Related Issues
== END 2022-04-10 11:27 | disposition home or self-care (01) | DRG 263 ==
LOC: HO.ED 09:52 → HO.SSS 10:04 → HO.S3 14:18
PROVIDERS: Student in an Organized Health Care Education/Training Program; Admitting Provider Surgery; Emergency Provider Emergency Medicine; PCP Internal Medicine; Visit Provider Surgery
PROC: 0FT44ZZ Resection of Gallbladder, Percutaneous Endoscopic Approach (ICD-10-PCS; CPT 47562; principal; 2022-04-09 10:20)
DX: K80.42 Calculus of bile duct with acute cholecystitis without obstruction (principal); E66.01 Morbid (severe) obesity due to excess calories; E78.2 Mixed hyperlipidemia; Z20.822 Contact with and (suspected) exposure to COVID-19; Z79.899 Other long term (current) drug therapy; Z68.35 Body mass index [BMI] 35.0-35.9, adult
CPT/HCPCS: 47562; 36415; 76705; 80053; 81003; 83690; 85025; 87635; 88304; 99285; C9088; J1885; J2250; J2270; J2405; J2795; J3010

== ENCOUNTER → 2022-04-30 10:55 | Outpatient (BNVA) | payer BC, SELFPAY | PROVIDERS: PCP Internal Medicine; Referring Provider Internal Medicine; Visit Provider Surgery | DX: Z13.89 Encounter for screening for other disorder (principal) ==

== ENCOUNTER 2022-05-18 08:08 | Outpatient (REF) | payer BC, SELFPAY ==
[2022-05-18 09:00] LABS: Appearance Urine Clear; Color Urine Dark Yellow; Glucose Urine UA Negative (Negative); Leukocyte Esterase Urine Trace (Negative); Nitrite Urine Negative (Negative); PH 6.5 (5.0-9.0); Specific Gravity - Urine >= 1.030 (1.005-1.025); UMIC TRIGGER UACC YES; Urine Blood Negative (Negative); Urine Ketones Trace mg/dL (Negative); Urine Protein Trace mg/dL (Neg-Trace)
[2022-05-18 09:04] LABS: Bacteria Urine None Seen (None Seen); Hyaline Casts Urine 0-2 /LPF (0-2); RBC Urine 0-2 /HPF (0-2); Squamous Epithelial Cell Urine 0-2 /HPF (0-2); UACC Culture Trigger YES
[2022-05-18 09:48] LABS: Alanine Aminotransferase 383 U/L (0-40); Albumin Level 4.4 g/dL (3.5-5.0); Alkaline Phosphatase 141 U/L (39-117); Anion Gap 14 (12-20); Aspartate Amino Transferase 150 U/L (5-37); Bilirubin Total 2.2 mg/dL (0.0-1.0); Blood Urea Nitrogen 16 mg/dL (9-16); Calcium 9.4 mg/dL (8.4-10.2); Carbon Dioxide 27 mmol/L (22-29); Chloride 102 mmol/L (96-108); Cholesterol 400 mg/dL; Estimated Glomerular Filt Rate > 60; Glucose Fasting 91 mg/dL (60-99); HDL Cholesterol 32 mg/dL; LDL Cholesterol Calculated 345 mg/dl; Potassium 4.2 mmol/L (3.3-5.1); Sodium 139 mmol/L (135-145); Total Protein 7.5 g/dL (6.5-8.0); Triglycerides 118 mg/dL
== END 2022-05-18 08:09 | disposition home or self-care (01) ==
LOC: HO.LAB 08:08
PROVIDERS: PCP Internal Medicine; Visit Provider Internal Medicine
DX: K21.9 Gastro-esophageal reflux disease without esophagitis (principal); E78.5 Hyperlipidemia, unspecified; R82.90 Unspecified abnormal findings in urine
CPT/HCPCS: 36415; 80053; 80061; 81001; 87086

== ENCOUNTER 2022-05-25 14:12 | Outpatient (REF) | payer BC, SELFPAY ==
[2022-05-25 16:35] LABS: INTERNATIONAL NORM RATIO 1.1 (0.9-1.1); Prothrombin Time 12.5 SEC (10.0-13.1)
[2022-05-25 23:13] LABS: Alanine Aminotransferase 75 U/L (0-40); Albumin Level 4.6 g/dL (3.5-5.0); Alkaline Phosphatase 93 U/L (39-117); Aspartate Amino Transferase 22 U/L (5-37); Bilirubin Direct 0.2 mg/dL (0.0-0.5); Bilirubin Total 0.6 mg/dL (0.0-1.0); Cholesterol 401 mg/dL; HDL Cholesterol 28 mg/dL; Iron 71 mcg/dL (45-160); LDL Cholesterol Calculated 337 mg/dl; Percent Iron Saturation 23 % (15-50); Total Iron Binding Capacity 314 mcg/dL (228-428); Total Protein 7.7 g/dL (6.5-8.0); Triglycerides 181 mg/dL; Unsaturated Iron Binding 243 ug/dL
[2022-05-25 23:27] LABS: Ferritin 184 ng/mL (20-250)
[2022-05-26 14:23] LABS: IgA 254 mg/dL (47-310); IgG 1361 mg/dL (600-1640); IgM 148 mg/dL (50-300)
[2022-05-28 08:19] LABS: HBS Num1 6.99 mIU/mL (0-7.99); HBc Num1 0.11 S/CO (0.00-0.79); HBsAGNum1 0.28 S/CO (0.00-0.99); Hepatitis B Core Antibody Nonreactive (Nonreactive); Hepatitis B Surface Antigen Negative (Negative); ~HepC Num1 0.09 S/CO (0.00-0.79); ~Hepatitis B Surface Antibody NONREACTIVE (Nonreactive); ~Hepatitis C Antibody Nonreactive (Nonreactive)
[2022-05-28 08:22] LABS: Hepatitis A Antibody IgG REACTIVE (Nonreactive); ~Hepatitis A Antibody IgG 11.27 S/CO (0.00-0.99)
[2022-05-28 13:49] LABS: Transglutaminase IgA <1.0 U/mL
[2022-05-29 22:53] LABS: Liver Kidney Microsomal Ab <=20.0 U (<=20.0)
[2022-05-30 08:28] LABS: Mitochondrial Antibodies NEGATIVE (NEGATIVE)
[2022-05-30 17:38] LABS: Smooth Muscle Antibody <20 U (<20)
== END 2022-05-25 14:13 | disposition home or self-care (01) ==
LOC: HO.LAB 14:12
PROVIDERS: PCP Internal Medicine; Referring Provider Internal Medicine; Visit Provider Internal Medicine
DX: R79.89 Other specified abnormal findings of blood chemistry (principal); E66.01 Morbid (severe) obesity due to excess calories; Z90.49 Acquired absence of other specified parts of digestive tract
CPT/HCPCS: 36415; 80061; 80076; 82728; 82784; 83540; 85610; 86015; 86255; 86256; 86364; 86376; 86704; 86706; 86708; 86803; 87340

== ENCOUNTER 2022-05-30 08:51 | Outpatient (REF) | payer BC, SELFPAY ==
--- NOTE | ~2022-05-30 | US_ITS ---
EXAMINATION: US ABDOMEN COMPLETE CLINICAL INFORMATION: Elevated LFTs. COMPARISON: Ultrasound abdomen limited 04/09/2022 and 03/23/2022. TECHNIQUE: Real-time imaging of the abdominal viscera. FINDINGS: PANCREAS: Normal. ABDOMINAL AORTA: The proximal, mid, and distal segments are normal in caliber. INFERIOR VENA CAVA: Visualized portions are normal. LIVER: Normal. The liver is normal in size. The liver contour is normal. Parenchymal echogenicity is normal. No focal hepatic lesion. There is no intrahepatic biliary duct dilatation seen. GALLBLADDER: Surgically absent. COMMON BILE DUCT: Normal in caliber measuring 0.5 cm in diameter. RIGHT KIDNEY: Normal. No hydronephrosis. No renal calculi or focal parenchymal lesions. The kidney measures 11.4 cm in maximum dimension. LEFT KIDNEY: Normal. No hydronephrosis. No renal calculi or focal parenchymal lesions. The kidney measures 11.4 cm in maximum dimension. SPLEEN: Normal. The spleen measures 10.3 cm in maximum dimension. FREE FLUID: None. US/US abdomen complete IMPRESSION: Unremarkable abdominal ultrasound.
== END 2022-05-30 08:52 | disposition home or self-care (01) ==
LOC: HO.HMGCX 08:51
PROVIDERS: PCP Internal Medicine; Visit Provider Internal Medicine
DX: R74.01 Elevation of levels of liver transaminase levels (principal)
CPT/HCPCS: 76700

== ENCOUNTER 2024-05-05 12:50 | Outpatient (AMB) | payer BC, SELFPAY ==
[2024-05-05 13:13] VITALS: BP 120/80; BMI 39.7
--- NOTE | 2024-05-05 13:13 | A.OFFPC_ITS ---
Vital Signs 05/05/24 13:13 Height 6 ft Weight 293 lb BMI 39.7 BP 120/80 Blood Pressure Location Lt brachial Position Sitting Intake Visit Reasons: physical exam Intake Note: Patient here for a physical exam Daylight Driller Required: No Accompanied by: Self / Same As Patient Allergies No Known Allergies Allergy (Verified 05/05/24 13:22) Medication List - Last Reconciled 05/05/24 by Ly Zavala MD atorvastatin 40 mg PO BEDTIME 90 days bupropion HCl XL 150 mg PO QAM 90 days loratadine 10 mg PO DAILY PRN 90 days omeprazole 20 mg PO DAILY 90 days Tobacco use date assessed: 05/05/24 Dental Screening Dental Screen Date: 05/05/24 Did you have a dental visit in the last 12 months?: No Did you have a dental problem in the last 6 months where you did not have access to dental care?: No Was dental information given to patient?: Patient has dentist HPI HPI Comments History of Present Illness Details The patient is a 34-year-old male presenting for a wellness visit and evaluation of current health status. He has a history of obesity with a Body Mass Index (BMI) of 39.7, indicating he is on the verge of morbid obesity. The patient has been advised to reduce weight, as this is a critical component of managing his overall health. His mother from conditions related to high blood pressure and cirrhosis, while his father is living with diabetes, hypertension, and high cholesterol. The patient has a previous history of surgery to remove a head lump, performed without complications. He denies any family history of colon cancer. The patient has never smoked and abstains from alcohol. He experiences depression and anxiety, which are being managed effectively with Bupropion. The patient has not received immunizations for flu this year. He denies the use of energy drinks, endorsing water as his primary beverage choice. The patient has no noted undergoings of recent laboratory work to assess blood glucose, kidney function, liver enzymes, or cholesterol levels. He reports no current symptoms, such as nausea or vomiting, and indicates normal urinary and bowel functions. [facility] Medical History (Updated 05/05/24 @ 13:31 by Ly Zavala MD) Allergic rhinitis Mixed hyperlipidemia Screen for STD (sexually transmitted disease) Anal fissure External thrombosed hemorrhoids Obese Hemorrhoids Mass of skin of head Skin lesion Morbid obesity Surgical History History of cholecystectomy History of hemorrhoidectomy History of surgery of head Family History Mother Liver cirrhosis Alcoholism Essential hypertension Father Essential hypertension Diabetes mellitus Pure hypercholesterolemia Social History Housing: Apartment Alcohol intake: never Patient Tobacco Use Status: Never used Tobacco e-Cigarette/Vaping Use: Never Used Second Hand Smoke Exposure: No service: No Current occupational status: employed Current occupational exposures/hazards: No Cognitive needs: No Hearing needs: No Vision needs: No Questionnaire PHQ-9 Over the last 2 weeks, how often have you been bothered by any of the following problems? 1. Little interest or pleasure in doing things: not at all 2. Feeling down, depressed, or hopeless: not at all 3. Trouble falling or staying asleep, or sleeping too much: not at all 4. Feeling tired or having little energy: not at all 5. Poor appetite or overeating: not at all 6. Feeling bad about yourself - or that you are a failure or have let yourself or your family down: not at all 7. Trouble concentrating on things, such as reading the newspaper or watching television: not at all 8. Moving or speaking so slowly that other people could have noticed. Or the opposite - being so fidgety or restless that you have been moving around a lot more than usual: not at all 9. Thoughts that you would be better off or of hurting yourself in some way: not at all Total score: 0 Depression Screening Interpretation: Negative Depression Screening Done: Yes 03345 - PHQ-9 Billing: Yes Source: Developed by Drs. Norris Niño, Chitra Lebron, Uli Medina and colleagues, with an educational ana from [employer]. Thrive Questionnaire Date Thrive assessed: 05/05/24 I am a: Patient What is your living situation today?: I have a steady place to live Within the past 12 months, did the food you bought not last and you didn't have the money to get more?: Never true Within the past 12 months, did you worry whether your food would run out before you got money to buy more?: Never true Do you have trouble paying for medicines?: No Do you have trouble getting transportation to medical appointments?: No Do you have trouble paying your heating and electricity bill?: No Do you have trouble taking care of your child, family member or friend?: No Do you have trouble with day-to-day activities such as bathing, preparing meals, shopping, managing finances, etc.?: No Are you currently unemployed and looking for a job?: No Are you interested in more education?: No Please select the resources that you would like help with: None Currently or been in a relationship where the following occur: No concerns reported THRIVE Score: 0 AUDIT C Alcohol Use Questionnaire (AUDIT-C) 1. How often do you have a drink containing alcohol?: Never Total Score: 0 Score Reviewed/Action Taken: No JS-7 AMB Questionnaire JS-7 Date JS - 7 assessed: 05/05/24 Feeling nervous, anxious, or on edge: 0 = Not at all Not being able to stop or control worryin = Not at all Worrying too much about different things: 0 = Not at all Trouble relaxin = Not at all Being so restless that it is hard to sit still: 0 = Not at all Becoming easily annoyed or irritable: 0 = Not at all Feeling afraid as if something awful might happen: 0 = Not at all Total JS-7 score (0-4 normal; 5-9 mild; 10-14 moderate; 15-21 severe): 0 Source: Developed by Drs. Norris Niño, Chitra Lebron, Uli Medina and colleagues, with an educational ana from [employer]. JS-7 Assessment Billing JS-7 Assessment Tool: JS-7 Assessment 60430 Review of Systems Const All systems reviewed & are unremarkable except as noted in HPI and below Card Denies chest pain at rest, Denies chest pain with activity, Denies edema, Denies irregular heart rhythm, Denies claudication, Denies dyspnea, Denies dyspnea on exertion, Denies orthopnea, Denies paroxysmal nocturnal dyspnea and Denies slow heart rate Resp Denies cough, Denies dyspnea and Denies dyspnea on exertion GI Denies abdominal pain, Denies change in bowel habits, Denies excessive flatus, Denies nausea and Denies vomiting Denies urinary hesitancy, Denies urinary incontinence and Denies urinary urgency Musc Denies abnormal gait, Denies atrophy, Denies deformity and Denies limited range of motion Neuro Denies abnormal gait, Denies behavioral changes and Denies lack of coordination Psych Denies behavioral changes Physical exam (Primary Care) Vital Signs: Last Vital Signs BP 120/80 05/05/24 13:13 BMI result Body Mass Index 39.7 BMI Assessment/Plan discussion: High BMI High, discussed plan: lifestyle, weight reduction, dietary and physical activity Tobacco/Smoking Status: Tobacco use Status Tobacco use date assessed 05/05/24 05/05/24 13:17 Patient Tobacco Use Status Never used Tobacco 05/05/24 13:17 e-Cigarette/Vaping Use Never Used 05/05/24 13:17 PHQ-9: PHQ-9 Score PHQ-9: Total score 0 05/05/24 13:17 Depression Screening Interpretation: Negative Thrive Assessment: Date of Thrive Assessment Date Thrive assessed 05/05/24 05/05/24 13:17 Currently or been in a relationship where the following occur: No concerns reported [facility] Head: Yes normal to inspection, Yes normocephalic and Yes atraumatic Ears: external ears normal Eyes General: appearance normal, both eyes and all related structures Eyelids: Yes eyelids normal Conjunctivae: conjunctivae normal Neck Neck: Yes normal visual inspection and Yes supple Resp Effort & Inspection: normal respiratory effort Auscultation: clear to auscultation bilaterally Cardio Jugular venous distension: no JVD Rate: regular rate Rhythm: regular rhythm Heart sounds: S1 normal heart sound present and S2 normal heart sound present GI Inspection: Yes normal to inspection Palpation (GI): Soft to palpation and nontender Auscultation: normal bowel sounds Skin General skin exam: no rashes or lesions noted Neuro General: no focal motor deficits Extrem General: Yes full ROM Psych Appearance: grossly normal Office Procedures Flu Questionnaire Does the patient have a severe egg allergy?: No Does the patient have severe life threatening allergies?: No Does the patient have a fever or illness today?: No Has the patient ever had Guillain-Columbus Syndrome?: No Has the patient ever had any past reaction to a flu shot?: No Immunizations Fluarix Triv [id number] (PF) 45 mcg (15 mcg x 3)/0.5 mL IM syringe Performing Provider: Ly Zavala MD Performing Location: [facility] Administered by: BRIDGETT Wilson on 05/05/24 13:34 Dose Route Admin Location Dispensed Lot Number Expiration Date NDC National Sales Representative 0.5 mL IM Left Deltoid 0.5 mL [id number] 10/19/24 [id number] [facility] VIS Given Date VIS Provided VIS Publication Date 05/05/24 Single Vaccine 20 Eligibility Eligibility Date Funding Source Not [facility] Eligible 05/05/24 Private Coding Level of Care Code Est Pt Level 3 (68013) Est Pt Prev Care 18-39y(99515) Diagnoses Physical exam Z00.00 Mild major depression F32.0 Screen for STD (sexually transmitted disease) Z11.3 Additional Codes PHQ-9 - 36015 - PHQ-9 Billing: Yes ([id number]) JS-7 Assessment Billing - JS-7 Assessment Tool: JS-7 Assessment 63780 ([id number]) Time Spent (min) 32 Assessment & Plan Assessment & Plan (1) Physical exam: Code(s): Z00.00 - Encounter for general adult medical examination without abnormal findings Category: Medical (2) Mild major depression: Code(s): F32.0 - Major depressive disorder, single episode, mild Category: Medical (3) Screen for STD (sexually transmitted disease): Code(s): Z11.3 - Encounter for screening for infections with a predominantly sexual mode of transmission Category: Medical Plan - Initiate routine laboratory tests for monitoring glucose, lipid levels, liver, and kidney function. - Continue management of depression and anxiety with Bupropion. - Advise on maintaining a reduced calorie diet and incorporate regular physical activity. - Plan for flu vaccine administration pending patient consent. - Monitor blood pressure regularly due to family history of hypertension. - Reinforce avoidance of sugar-laden beverages to aid in weight management. Patient was informed and verbally consented to the use of an ambient scribe for clinic note documentation during this visit. During today's visit, I discussed with the patient the importance of ongoing weight management due to his obesity, elevated BMI, and increased risk factors given his family history of diabetes, hypertension, and hyperlipidemia. We reviewed the role of regular exercise and proper dietary habits in controlling weight and reducing overall cardiovascular risks. I emphasized that continuing Bupropion is crucial for managing his depression and anxiety, given its effectiveness, and discussed the potential for influenza vaccination this season. We agreed on monitoring his health, including routine labs, to address possible comorbidities effectively. The patient verbalized understanding of and agreement with this plan and anticipatory guidance provided. Orders: Orders CT NG by PCR Today Z11.3 - Encounter for screening for infections with a predominantly sexual mode of transmission Lipid Panel Today E78.5 - Hyperlipidemia, unspecified Comprehensive [place]. Panel Fast Today Z00.00 - Encounter for general adult medical examination without abnormal findings Syphilis Screen Today Z11.3 - Encounter for screening for infections with a predominantly sexual mode of transmission Patient Instructions: - Schedule laboratory test appointments for cholesterol, glucose, liver, and kidney function. - Engage in 30 minutes of physical activity five days a week. - Focus on a balanced diet, reduce sugary beverages, and avoid sodas and energy drinks. - Monitor blood pressure at home if feasible and report significant changes. - Consider receiving the flu vaccine. - Continue prescribed Bupropion and report any mood changes. - Follow up as needed to review lab results and ongoing health concerns.
== END 2024-05-05 13:33 | disposition home or self-care (01) ==
LOC: HO.HMCH 12:50
PROVIDERS: PCP Internal Medicine; Visit Provider Internal Medicine
DX: Z00.00 Encounter for general adult medical examination without abnormal findings (principal); F32.0 Major depressive disorder, single episode, mild; Z11.3 Encounter for screening for infections with a predominantly sexual mode of transmission; Z23 Encounter for immunization

== ENCOUNTER → 2024-05-05 12:50 | Outpatient (BNVA) | payer BC, SELFPAY | PROVIDERS: PCP Internal Medicine; Visit Provider Internal Medicine | DX: Z00.00 Encounter for general adult medical examination without abnormal findings (principal); Z23 Encounter for immunization; F32.0 Major depressive disorder, single episode, mild; E66.9 Obesity, unspecified; Z68.39 Body mass index [BMI] 39.0-39.9, adult | CPT/HCPCS: 90471; 90656; 96127 ==